=== PATIENT | female | born 1950 | race Caucasian/White ===

== ENCOUNTER 2016-03-15 19:27 | Inpatient (IN) | payer OTHER ==
[~2016-03-15] VITALS: Ht 165.1 cm; Wt 53.5 kg
[2016-03-15 20:00] VITALS: Ht 165.1 cm; Wt 53.5 kg
[2016-03-15 20:55] VITALS: BP_SYST 130; BP_SYST 132; BP_DIAS 63; BP_DIAS 64; RESP 16
[2016-03-15] MEDS ORDERED: BISACODYL 10 MG SUPP PR PRN (21:30)
[2016-03-15] MEDS ORDERED: NALOXONE (0.4 MG/ML) INJ IV ONE (21:30)
[2016-03-15] MEDS ORDERED: ACETAMINOPHEN/CODEINE 5 ML CUP PO PRN (21:30)
[2016-03-15] MEDS ORDERED: ACETAMINOPHEN 325/HYDROC 7.5 15 ML CUP PO PRN (21:30)
[2016-03-15] MEDS ORDERED: DIPHENHYDRAMINE 50 MG INJ IV PRN (21:30)
[2016-03-15] MEDS ORDERED: ACETAMINOPHEN 325 MG TAB PO PRN (21:30)
[2016-03-15] MEDS: SENNA TAB PO SCH (22:00)
[2016-03-15] MEDS ORDERED: NALOXONE (0.4 MG/ML) INJ IV PRN (22:00)
[2016-03-15 22:49] LABS: ADD UMIC YES; URINE BILIRUBIN (Dip) 1+ (NEGATIVE); URINE BLOOD (Dip) 1+ (NEGATIVE); URINE COLOR YELLOW (YELLOW); URINE GLUCOSE (Dip) NEGATIVE (NEGATIVE); URINE KETONES (Dip) 3+ (NEGATIVE); URINE LEUKOCYTE ESTERASE (Dip) 1+ (NEGATIVE); URINE NITRITE (Dip) NEGATIVE (NEGATIVE); URINE TOTAL PROTEIN (Dip) TRACE (NEGATIVE); URINE UROBILINOGEN (Dip) 0.2 E.U./dL (0.1-1.0)
[2016-03-15 23:05] LABS: ICTOTEST NEGATIVE (NEGATIVE)
[2016-03-15 23:06] LABS: BACTERIA,URINE MODERATE; SQUAMOUS EPITHELIAL CELL,UR MODERATE
[2016-03-15 23:07] LABS: MUCUS,URINE MODERATE
[2016-03-16 08:08] LABS: BASOPHIL # 0.1 10^3/ul (0.0-0.1); EOSINOPHILS # 0.3 10^3/ul (0.0-0.5); HEMATOCRIT 32.8 % (37.0-47.0); HEMOGLOBIN 11.2 g/dl (12.0-16.0); LYMPHOCYTES # 1.4 10^3/ul (0.8-2.9); LYMPHOCYTES % 22.1 % (15.0-51.0); MEAN CORPUSCULAR HGB CONC 34.1 g/dl (32.0-37.0); MEAN PLATELET VOLUME 7.9 fl (7.4-10.4); MONOCYTE # 0.5 10^3/ul (0.3-0.9); MONOCYTES % 7.5 % (0.0-11.0); NEUTROPHIL # 4.3 10^3/ul (1.6-7.5); NEUTROPHILS % 65.4 % (39.0-77.0); PLATELET COUNT 287 10^3/UL (140-440); RED BLOOD COUNT 3.86 10^6/ul (4.20-5.40); RED CELL DISTRIBUTION WIDTH 12.9 % (11.5-14.5); UNCORRECTED WBC 6.5 10^3/ul (4.8-10.8); WHITE BLOOD COUNT 6.5 10^3/ul (4.8-10.8)
[2016-03-16 08:15] LABS: ALBUMIN 3.6 g/dl (3.3-4.9); CONDITION 1; POTASSIUM 3.2 mmol/L (3.5-5.1)
[2016-03-16 08:17] LABS: CREATININE 0.62 mg/dl (0.44-1.00)
[2016-03-16 08:18] LABS: ALBUMIN/GLOBULIN RATIO 0.92; BILIRUBIN,INDIRECT 0.8 mg/dl (0-1.1); BILIRUBIN,TOTAL 0.8 mg/dl (0.2-1.3); TOTAL PROTEIN 7.5 g/dl (6.1-8.1)
[2016-03-16 08:19] LABS: CALCIUM 8.6 mg/dl (8.4-10.2)
[2016-03-16] MEDS ORDERED: POTASSIUM CHLORIDE (SR) 20 MEQ TAB PO STA (10:41)
[2016-03-16] MEDS ORDERED: MAGNESIUM HYDROXIDE 30ML CUP PO PRN (11:00)
--- NOTE | 2016-03-16 11:47 | CONS ---
DATE OF ADMISSION: 03/15/2016 DATE OF CONSULTATION: 03/16/2016 REHABILITATION POST ADMISSION PHYSICIAN EVALUATION REHABILITATION IMPAIRMENT CATEGORY: Other orthopedic injury with patient status post right total kn ee arthroplasty. ACTIVE COMORBIDITIES: 1. Acute pain syndrome. 2. Dysphagia. 3. History of shoulder surgery. 4. History of gastric lap band. 5. Impairments in self-care and mobility. HISTORY OF PRESENT ILLNESS: The patient is a very pleasant 65-year-old female with a history of ga stric lap band who sustained a work related right knee injury in 2012. The patient has noted signif icant pain and discomfort and impairments in self-care and mobility despite conservative measures. The patient underwent a right total knee arthroplasty on 03/12/2016. Her postoperative course has b een notable for significant pain, and impairments in self-care and mobility as compared to baseline. The patient has been cleared to transfer to the rehabilitation unit for comprehensive interdiscipl inary rehab care. FUNCTIONAL HISTORY: Prior to recent events, she was independent in self-care tasks and mobility. C urrently, she requires minimal assist for self-care and mobility tasks. I have reviewed the preadmission screen and the patient's current functional status is consistent wi th the preadmission screen. SOCIAL HISTORY: The patient lives at home with her and hopes to return there upon discharge . PAST MEDICAL HISTORY: 1. History of gastric lap band surgery. 2. History of shoulder surgery. CURRENT MEDICATIONS: 1. Hydrocodone p.r.n. 2. Colace 250 b.i.d. p.r.n. 3. Morphine sulfate IV. 4. Zofran p.r.n. 5. Xarelto 10 mg p.o. daily. 6. Ambien p.r.n. ALLERGIES: BACITRACIN. PHYSICAL EXAMINATION: VITAL SIGNS: The patient is currently afebrile with stable vital signs. HEENT: The extraocular motions are intact. Oropharynx clear. NECK: Supple. LUNGS: Clear anteriorly. CARDIAC: S1, S2. ABDOMEN: Soft, nontender, positive bowel sounds. NEUROLOGIC: She is awake, alert, and oriented x3. She can follow simple 1-step commands. Cranial nerves are grossly intact. She has good strength in bilateral upper extremity and the left lower ex tremity. Dorsiflexion and plantarflexion intact on the right. PLAN: The patient has been admitted for comprehensive interdisciplinary acute rehab and is anticipa jadiel to tolerate 3 hours of daily therapy in divided doses for at least 5/7 days a week. Treatment p genesis will include: 1. Physical therapy to focus on bed mobility, transfers, and household ambulation with the goal of having the patient reach a standby assist level. 2. Occupational therapy to focus on hygiene, grooming, dressing, bathing, and toileting activities with the goal of having the patient reach a standby assist level. 3. Rehabilitation nursing for carryover of therapeutic interventions with the goal of continent of bowel and bladder, and the goal of pain adequately managed on oral medications. REHABILITATION BARRIER: Pain. INTERVENTION FOR BARRIER: Comprehensive interdisciplinary approach. ESTIMATED LENGTH OF STAY: 10 days. DISPOSITION GOAL: Home. I acknowledge that I have performed a full physical examination on this patient within 24 hours of a dmission to the rehabilitation unit and believe the patient is a good candidate for comprehensive in terdisciplinary rehab care and is anticipated to make reasonable goals in a reasonable period of savannah e as outlined above. Dictated By: RUDDY ATKINS/ROGELIO Conf#: [id number] DID#: [id number]
--- NOTE | 2016-03-16 15:32 | HP ---
DATE OF ADMISSION: 03/15/2016 REASON FOR ADMISSION: The patient status post right total knee arthroplasty on 03/12/2016, presents for rehabilitation. HISTORY OF PRESENT ILLNESS: The patient is a 65-year-old female with a history of right k nee osteoarthritis, work-related injury to the knee, obese state status post laparoscopic band surge ry in 2007, hypothyroidism. Currently off medications, status post multiple orthopedic surgeries i n the past including left rotator cuff surgery, meniscal tear in the right knee who had difficulty w ith ambulation because of ongoing pain. It was decided for the patient to undergo total knee arthro plasty. The patient underwent total right knee arthroplasty on 03/12/2016. Overall, tolerated the procedure well. Post surgery she has been having trouble swallowing food. She has been experiencin g episodes of nausea and some vomiting. It was decided to transfer her to the acute rehab at [facility] for rehabilitation. The patient denies dysuria, denies any headaches or blurry vision . Denies any chest pain or shortness of breath. She does report difficulty tolerating food since t he surgery. Has been swallowing pills at times. The patient is admitted for further care. PAST MEDICAL HISTORY: Includes osteoarthritis, work-related joint injury, previously morbidly obese , status post lap band surgery. PAST SURGICAL HISTORY: x3, rotator cuff surgery on the left, gastric lap band in 2007, me niscal tear in the right knee surgery, cataract surgery. ALLERGIES: BACITRACIN. PREVIOUS MEDICATIONS: Synthroid, currently off. MEDICATIONS UPON ADMISSION: Include: 1. Xarelto 10 mg with dinner. 2. Milk of magnesia p.r.n. 3. Senna 1 tab at bedtime. 4. Tylenol p.r.n. 5. Ambien p.r.n. 6. Tylenol with codeine liquid q.4h. p.r.n. 7. Bisacodyl p.r.n. 8. Zofran p.r.n. 9. Benadryl p.r.n. SOCIAL HISTORY: The patient denies tobacco, alcohol, or IV drug use. The patient is +3. 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 FAMILY HISTORY: Mother recently. She was 92 years old. Father has multiple medical problems including CHF, COPD, and prostate cancer. The patient's last colonoscopy was in 2007 which was norm al. The patient is up to date with mammogram. PRIMARY MEDICAL DOCTOR: Jalen Houser REVIEW OF SYSTEMS: Per HPI. The patient did suffer work-related injury in 2011 after she fell. Si nce then she has been experiencing the right knee problems, now underwent surgery. The patient is a dmitted for further care. Again, patient denies headaches, blurry vision, chest pain, shortness of breath. PHYSICAL EXAMINATION: VITAL SIGNS: Blood pressure is 130/63, pulse 73, respirations 16, temperature 99.1, saturation 96% on room air. GENERAL: No acute distress, thin-looking, patient is pale. HEENT: No JVD. CARDIOVASCULAR: S1, S2, regular rate and rhythm. LUNGS: Clear. ABDOMEN: In the right upper quadrant you can feel the lap band, otherwise no significant pain. EXTREMITIES: No clubbing, cyanosis, or edema. Right lower extremity in a brace. NEUROLOGIC: The patient is moving all extremities. LABORATORIES: White count 6.5, hemoglobin 11.2, hematocrit 33, platelet count 287, neutrophils 65%, lymphocytes 22%. Chemistry: Sodium is 141, potassium 3.2, low, chloride 95, bicarbonate 33, BUN i s 14, creatinine 0.62, glucose of 89. AST 19, ALT 20, alkaline phosphatase 50, total protein 7.5, a lbumin is 3.6. UA shows specific gravity greater than 1.030, ketones +3, bilirubin +1, leukocyte es terase +1, and WBCs 20 to 50, moderate epithelial cells. Urine culture so far negative. MRSA of th e nose is pending. ASSESSMENT AND PLAN: This is a 65-year-old female with status post work-related injury, n ow status post right knee arthroplasty. 1. Right knee total arthroplasty. The patient to receive physical therapy, special instrument for right knee, rehab, pain control, physical therapy, occupational therapy. Goal is to help with activ ities of daily living so she can go home. 2. Some dysphagia and nausea. We will place the patient on Reglan around the clock before meals. Will more stool softeners as the patient may be constipated. Placed her on proton pump inhibitor. If symptoms persist, we will consult GI and possible general surgeon as the patient does have a lap band. In the meantime, we will try to crush all medication. We will give it her in liquid form. 3. History of hypothyroidism. Follow up TSH levels. Currently, off medications. 4. The patient is on Xarelto 10 mg daily for DVT prophylaxis. 5. Anemia, stable, status post surgery. 6. Malnutrition with a BMI of 19.6. Continue Boost and monitor patient's p.o. intake. 7. Hypokalemia, potassium supplements were given. 8. Positive urinalysis, clinically is asymptomatic. If I see that she has symptoms, may consider s tarting her on empiric treatment as the patient's vomiting may be related to UTI. Again, will follo w also cultures and sensitivities. We will follow the patient closely. Dictated By: TRACE SELLERS/ROGELIO Conf#: [id number] DID#: [id number]
[2016-03-16] MEDS: RIVAROXABAN 10 MG TABLET PO SCH (17:37)
[2016-03-16] MEDS: METOCLOPRAMIDE 10 MG TAB PO SCH (17:37)
[2016-03-16] MEDS: CIPROFLOXACIN 500 MG TAB PO SCH (17:38)
[2016-03-16 20:00] VITALS: BP 111/56; RESP 18
[2016-03-16] MEDS: ZOLPIDEM 5 MG TAB PO PRN (20:51)
[2016-03-16] MEDS: SENNA TAB PO SCH (21:00)
[2016-03-17] MEDS ORDERED: PANTOPRAZOLE (EC) 40 MG TAB PO SCH (06:00)
[2016-03-17] MEDS: CIPROFLOXACIN 500 MG TAB PO SCH (06:45)
[2016-03-17 07:30] VITALS: BP 116/56; RESP 18
[2016-03-17] MEDS: METOCLOPRAMIDE 10 MG TAB PO SCH ×2 (09:23→11:24)
[2016-03-17] MEDS: POLYETHYLENE GLYCOL 17 GM PACKET PO SCH (09:23)
[2016-03-17] MEDS: SCOPOLAMINE 1.5 MG PATCH TRANSDERM SCH (09:24)
[2016-03-17] MEDS: morphine LIQ (10 MG/5 ML) CUP PO PRN (13:12)
--- NOTE | 2016-03-17 14:32 | PN ---
Date/Time of Note Date/Time of Note DATE: 03/17/16 TIME: 14:24 Assessment/Plan VTE Prophylaxis VTE Prophylaxis Intervention: other (xarelto) Lines/Catheters Urinary Cath still in place: No Assessment/Plan Assessment/Plan 1. Status post Right total knee arthroplasty with history of right knee OA and prior work related injury. With impaired mobility/gait/ADLs. Continue PT/OT, min assist for gait 60ft with walker. Moderate assistance for lower body dressing. Continue surgical site care. Continue pain control for acute post op pain, patient hesitant to take pain medications due to nausea. 2. Dysphagia, with persistent nausea and vomiting, with history of lap band surgery. Has been evaluated by ST, report oropharyngeal stage of swallow appearing to be relatively functional; recommend GI consult to evaluate esophageal stage of swallow. Discussed case with internal medicine today, plan for GI consult for further evaluation. Continue antiemetics and PPI. Continue stool softeners to avoid constipation. 3. Anemia. Continue to monitor hemoglobin/hematocrit. 4. Hypokalemia. S/p supplementation. Recheck BMP tomorrow. 5. Positive urinalysis. On antibiotics per internal medicine, urine culture without growth to date. Subjective 24 Hr Interval Summary Free Text/Dictation Rehab progress note Subjective: Reports moderate pain in right knee. Still with ongoing nausea and vomiting after food intake. No abdominal pain. Reports moving bowels. ROS: Denies headache, no chest pain, no palpitations, no shortness of breath, no chills. Exam/Review of Systems Vital Signs Vitals Vital Signs Date Time Temp Pulse Resp B/P Pulse Ox O2 Delivery O2 Flow Rate FiO2 03/17/16 07:30 97.7 57 18 116/56 99 Intake and Output 03/16/16 03/16/16 03/17/16 15:00 23:00 07:00 Intake Total 480 ml 840 ml Output Total 20 ml Balance 480 ml 820 ml Exam General: Awake, alert, no acute distress CV: Regular rate, s1s2 Lungs clear to auscultation, no wheezing Abdomen soft, nontender, bowel sounds present Extremities: Right knee dressing c/d/i. No cyanosis Neuro: Follows simple commands. R DF/PF intact. Results Result Diagram: 03/16/1662103/16/16621 Medications Medications Current Medications Acetaminophen (Tylenol Tab) 650 mg Q4H PRN PO PAIN AND OR ELEVATED TEMP; Start 03/15/16 at 21:30 Senna (Senokot) 1 tab HS PO ; Start 03/15/16 at 22:00 Acetaminophen/ Codeine Phosphate (Tylenol/Codeine Liquid) 12.5 ml Q4H PRN PO PAIN Last administered on 03/16/16 12:41; Admin Dose 12.5 ML; Start 03/15/16 at 21:30 Acetaminophen/ Hydrocodone Bitart (Lortab Liq) 15 ml Q3 PRN PO PAIN Last administered on 03/16/16 08:45; Admin Dose 15 ML; Start 03/15/16 at 21:30 Bisacodyl (Dulcolax Supp) 10 mg HS PRN [place] CONSTIPATION; Start 03/15/16 at 21:30 Ondansetron HCl (Zofran Inj) 4 mg Q4H PRN IV NAUSEA AND/OR VOMITING; Start at 21:30 Diphenhydramine HCl (Benadryl) 12.5 mg Q6H PRN IV ITCHING; Start 03/15/16 at 21 :30 Naloxone HCl (Narcan) 0.4 mg PRN PRN IV SEDATION; Start 03/15/16 at 22:00 Magnesium Hydroxide (Milk Of Mag) 30 ml DAILY PRN PO CONSTIPATION Last administered on 03/16/16 15:39; Admin Dose 30 ML; Start 03/16/16 at 11:00 Pantoprazole (Protonix Tab) 40 mg DAILY@06 PO Last administered on 03/17/16 06 :45; Admin Dose 40 MG; Start 03/17/16 at 06:00 Polyethylene Glycol (Miralax) 17 gm DAILY PO Last administered on 03/17/16 09: 23; Admin Dose 17 GM; Start 03/17/16 at 09:00 Morphine Sulfate (morphine) 10 mg Q4H PRN PO PAIN Last administered on 13:12; Admin Dose 10 MG; Start 03/16/16 at 20:30 Scopolamine 1 patch 1 patch Q72H TRANSDERM Last administered on 03/17/16 09:24 ; Admin Dose 1 PATCH; Start 03/17/16 at 09:00 Dextrose/Sodium Chloride 1,000 ml @ 75 mls/hr [id number] IV ; Start 03/17/16 at 13 :30 Ceftriaxone Sodium (Rocephin) 50 ml @ 100 mls/hr Q24H IVPB ; Start 03/17/16 at 14:30 CELSA WARREN Mar 17, 2016 14:32
--- NOTE | 2016-03-17 15:52 | CONS ---
Date/Time of Note Date/Time of Note DATE: 03/17/16 TIME: 15:34 Assessment/Plan Assessment/Plan Chief Complaint/Hosp Course Impression: 1. dysphagia: ddx include narrowing from lap band, esophagitis, gastritis, constipation, thyroid disorder, others... 2. constipation: may contribute to pt's dysphagia 3. anemia: r/o gib 4. Right knee total arthroplasty. 5. History of hypothyroidism. Recommendations: 1. check TSH 2. increase PPI to bid dosing 3. dc reglan and replace with qAC zofran odt 4. barium swallow esophagram 5. EGD to evaluate dysphagia if barium swallow unrevealing and symptoms not better wtih PPI and zofran. Problems: Consultation Date/Type/Reason Admit Date/Time Mar 15, 2016 at 19:27 Type of Consultation: GI Reason for Consultation difficulty swallowing Hx of Present Illness 65-year-old female with a history of right knee osteoarthritis, work- related injury to the knee, status post multiple orthopedic surgeries in the past including left rotator cuff surgery, meniscal tear in the right knee who had difficulty with ambulation because of ongoing pain. She is s/p right total knee arthroplasty on 03-12-16 and admitted for rehabilitation. Post surgery she has been having trouble swallowing food. She has been experiencing episodes of nausea and some vomiting. She says that she was never nauseous before and in fact ate a big steak and tolerated it prior to coming to the hospital. She did have h/o lap band surgery in 2007 for obesity but denied any issues with the lap band causing current symptoms of dysphagia. The patient denies dysuria, denies any headaches or blurry vision. Denies any chest pain or shortness of breath. All point ROS is administered, pertinent positives and negatives in HPI otherwise negative. Past Medical History Medical History: other (osteoarthritis, work related joint injury, previously obese prior to lap band surgery) Past Surgical History x 3, rotator cuff surgery left, right knee meniscal tear, cataract, lap band in 2007 Family History Significant Family History: heart disease, COPD, other (prostate cancer in father) Social History Alcohol Use: none Smoking Status: Never smoker Drug Use: none Exam/Review of Systems Vital Signs Vitals Vital Signs Date Time Temp Pulse Resp B/P Pulse Ox O2 Delivery O2 Flow Rate FiO2 03/17/16 07:30 97.7 57 18 116/56 99 Intake and Output 03/16/16 03/16/16 03/17/16 15:00 23:00 07:00 Intake Total 480 ml 840 ml Output Total 20 ml Balance 480 ml 820 ml Exam Constitutional: alert, oriented, well developed Psych: nl mood/affect, no complaints Head: atraumatic, normocephalic Eyes: EOMI, nl conjunctiva, nl lids, nl sclera ENMT: mucosa pink and moist, nl external ears & nose, nl lips & teeth, nl nasal mucosa & septum Neck: non-tender, supple Respiratory: clear to auscultation, normal air movement Cardiovascular: edema, nl pulses, regular rate and rhythm Gastrointestinal: bowel sounds, nl liver, spleen, non-tender, soft Extremities: normal pulses, other (right lower extremity in brace) Neurological: nl mental status, nl speech, nl strength Results Result Diagram: 03/16/1662103/16/16621 Medications Medications Current Medications Acetaminophen (Tylenol Tab) 650 mg Q4H PRN PO PAIN AND OR ELEVATED TEMP; Start 03/15/16 at 21:30 Senna (Senokot) 1 tab HS PO ; Start 03/15/16 at 22:00 Acetaminophen/ Codeine Phosphate (Tylenol/Codeine Liquid) 12.5 ml Q4H PRN PO PAIN Last administered on 03/16/16 12:41; Admin Dose 12.5 ML; Start 03/15/16 at 21:30 Acetaminophen/ Hydrocodone Bitart (Lortab Liq) 15 ml Q3 PRN PO PAIN Last administered on 03/16/16 08:45; Admin Dose 15 ML; Start 03/15/16 at 21:30 Bisacodyl (Dulcolax Supp) 10 mg HS PRN [place] CONSTIPATION; Start 03/15/16 at 21:30 Ondansetron HCl (Zofran Inj) 4 mg Q4H PRN IV NAUSEA AND/OR VOMITING; Start at 21:30 Diphenhydramine HCl (Benadryl) 12.5 mg Q6H PRN IV ITCHING; Start 03/15/16 at 21 :30 Naloxone HCl (Narcan) 0.4 mg PRN PRN IV SEDATION; Start 03/15/16 at 22:00 Magnesium Hydroxide (Milk Of Mag) 30 ml DAILY PRN PO CONSTIPATION Last administered on 03/16/16 15:39; Admin Dose 30 ML; Start 03/16/16 at 11:00 Pantoprazole (Protonix Tab) 40 mg DAILY@06 PO Last administered on 03/17/16 06 :45; Admin Dose 40 MG; Start 03/17/16 at 06:00 Polyethylene Glycol (Miralax) 17 gm DAILY PO Last administered on 03/17/16 09: 23; Admin Dose 17 GM; Start 03/17/16 at 09:00 Morphine Sulfate (morphine) 10 mg Q4H PRN PO PAIN Last administered on 13:12; Admin Dose 10 MG; Start 03/16/16 at 20:30 Scopolamine 1 patch 1 patch Q72H TRANSDERM Last administered on 03/17/16 09:24 ; Admin Dose 1 PATCH; Start 03/17/16 at 09:00 Dextrose/Sodium Chloride 1,000 ml @ 75 mls/hr [id number] IV ; Start 03/17/16 at 13 :30 Ceftriaxone Sodium (Rocephin) 50 ml @ 100 mls/hr Q24H IVPB ; Start 03/17/16 at 14:30 SHAGGY SAMUELS MD Mar 17, 2016 15:45
[2016-03-17] MEDS: DEXTROSE 5%-0.45% NACL 1,000 ML IV SCH (16:26)
[2016-03-17] MEDS: CEFTRIAXONE 1 GM/50 ML (PMX) 50 ML IVPB SCH (16:26)
[2016-03-17] MEDS ORDERED: METOCLOPRAMIDE 10 MG TAB PO SCH (17:35)
[2016-03-17] MEDS: RIVAROXABAN 10 MG TABLET PO SCH (18:56)
[2016-03-17] MEDS: PANTOPRAZOLE 40 MG INJ IV SCH (18:57)
[2016-03-17] MEDS: ONDANSETRON (ODT) 4 MG TAB ODT SCH (18:57)
[2016-03-17 19:30] VITALS: BP 119/74; RESP 17
--- NOTE | 2016-03-17 20:11 | RADRPT ---
PROCEDURE: Upper GI series with small bowel follow through CLINICAL INDICATION: Solid difficulty, regurgitation. TECHNIQUE: Upper GI series was performed with approximately 1 cup of barium contrast with overhead radiographs obtained during the procedure. Fluoroscopic guidance was utilized during the examinati on. COMPARISON: None available. FINDINGS: Upper GI: The swallowing mechanism is normal. The esophagus is normal in course, caliber, and morphology with normal primary peristaltic stripping waves. No mucosal changes in the esophagus are identified. There is no evidence for hiatal hernia. Lap band is noted. Position is satisfactory. There is minimal contrast flow through the lap band. There is persistent contrast in the esophagus for up to 10 minutes. There is minimal contrast in the stomach. Small bowel follow-through could not be performed as no contrast reached the duodenum. There is significant and persistent reflux without significant contraction of the lower esophageal s phincter. IMPRESSION: 1. Lap-band with satisfactory position. 2. There is minimal contrast flow through the lap band. This may be due to adjustment of the lap b and or due to underlying inflammation/gastritis causing stenosis through the lap band. GI consultati on is suggested. 3. Persistent retained barium contrast in the esophagus for longer than 10 minutes. The barium con trast was not cleared at the end of the exam. 4. Incomplete upper GI and incomplete small-bowel follow-through due to obstruction at the lap band . The study may be repeated after clearance of the obstruction. RPTAT: HLDM .Karlos Viveros MD, Date Time Electronically viewed and signed by .Karlos Viveros MD, on 03/17/2016 20:11 .M/
[2016-03-17] MEDS: SENNA TAB PO SCH (20:27)
[2016-03-17] MEDS: ZOLPIDEM 5 MG TAB PO PRN (20:28)
--- NOTE | 2016-03-17 20:40 | PN ---
DATE: 03/17/2016 SUBJECTIVE: Patient seen. Unfortunately, the patient still has difficulty tolerating all meals. S he said everything that goes in, comes back out. She prefers her diet to be in liquid form for now. Overall, participating with physical therapy and occupational therapy. The patient also complaini ng of dizziness when getting out of bed. PHYSICAL EXAMINATION: VITAL SIGNS: Temperature 97.7, pulse 57, respirations 18, blood pressure 116/56, saturation 99% on room air. GENERAL: The patient is in no acute distress. Patient is pale, thin looking. CARDIOVASCULAR: S1, S2, regular rate and rhythm. LUNGS: Clear. ABDOMEN: Soft, thin. The Lap band is palpated in the right upper quadrant. EXTREMITIES: No clubbing, cyanosis, or edema. Right lower extremity is in a special bandage. LABORATORY DATA: Done on admission shows a white count of 6.5, hemoglobin 11.2, hematocrit 33, plat elet count 287,000, with normal differential. Chemistry: Sodium 141, potassium 3.2, otherwise CMP is normal. UA was positive on admission with specific gravity greater than 1.030 suggestive of dehy dration. Negative leukocyte esterase at +1, WBC 25-50. I did start on ciprofloxacin. Urine culture remains negative. MRSA of the nares is negative. MEDICATIONS: Current meds reviewed include: 1. MiraLAX 17 grams daily. 2. Scopolamine patch q.72h. 3. Protonix 40 mg daily. 4. Morphine 10 mg orally q.4h. p.r.n. 5. Cipro 500 b.i.d. 6. Xarelto 10 mg with dinner. 7. Reglan 10 mg with meals orally. 8. Milk of magnesia p.r.n. 9. Senna 1 tab at bedtime. 10. Narcan p.r.n. 11. Tylenol p.r.n. 12. Ambien p.r.n. 13. Lortab p.r.n. 14. Dulcolax p.r.n. 15. Zofran p.r.n. ASSESSMENT AND PLAN: This is a 65-year-old female with history of Lap band surgery in the past, hypothyroidism, anemia postop, who presents status post right knee arthroplasty secondary to work-related injury. 1. Right hip total arthroplasty. Continue physical therapy, occupational therapy, pain control. H elp with activities of daily living, with the goal for her to go home. 2. Cardiovascular. The patient is on Xarelto for DVT prophylaxis. 3. Gastrointestinal. The patient with persistent dysphagia and nausea. Will change oral Reglan t o IV Reglan. We will hydrate patient gently, and will consult GI. Continue stool softeners and pro ton pump inhibitor. The patient also is on scopolamine. Will continue to monitor her symptoms clos merline. Change her diet to full liquid diet for now. 4. Hypothyroidism. Currently off Synthroid. Followup TSH level in the a.m. 5. Anemia, mild postoperatively. 6. Hypokalemia. Follow up potassium levels. 7. Positive urinalysis. Switch Cipro to ceftriaxone. 8. We will continue to follow the patient closely and may consider surgical evaluation of patient's Lap band. Case discussed with rehab physician. We will follow. Dictated By: TRACE SELLERS/ROGELIO Conf#: [id number] DID#: [id number]
[2016-03-18] MEDS: PANTOPRAZOLE 40 MG INJ IV SCH ×2 (06:14→17:34)
[2016-03-18] MEDS: DEXTROSE 5%-0.45% NACL 1,000 ML IV SCH ×2 (06:14→20:13)
[2016-03-18 07:30] VITALS: BP 109/55; RESP 18
[2016-03-18 07:45] LABS: ALBUMIN 3.3 g/dl (3.3-4.9)
[2016-03-18 07:46] LABS: POTASSIUM 3.4 mmol/L (3.5-5.1)
[2016-03-18 07:48] LABS: ALBUMIN/GLOBULIN RATIO 0.91; BILIRUBIN,INDIRECT 0.6 mg/dl (0-1.1); BILIRUBIN,TOTAL 0.6 mg/dl (0.2-1.3); CREATININE 0.61 mg/dl (0.44-1.00); TOTAL PROTEIN 6.9 g/dl (6.1-8.1)
[2016-03-18 07:50] LABS: PHOSPHORUS 4.6 mg/dl (2.5-4.9)
[2016-03-18 08:02] LABS: BASOPHILS % 0.7 % (0.0-2.0); EOSINOPHILS # 0.2 10^3/ul (0.0-0.5); EOSINOPHILS % 5.1 % (0.0-7.0); HEMATOCRIT 28.3 % (37.0-47.0); HEMOGLOBIN 9.9 g/dl (12.0-16.0); LYMPHOCYTES # 1.1 10^3/ul (0.8-2.9); LYMPHOCYTES % 23.5 % (15.0-51.0); MEAN CORPUSCULAR HEMOGLOBIN 28.8 pg (29.0-33.0); MEAN CORPUSCULAR HGB CONC 35.1 g/dl (32.0-37.0); MEAN CORPUSCULAR VOLUME 82.1 fl (82.0-101.0); MEAN PLATELET VOLUME 7.9 fl (7.4-10.4); MONOCYTE # 0.5 10^3/ul (0.3-0.9); NEUTROPHIL # 2.7 10^3/ul (1.6-7.5); NEUTROPHILS % 59.7 % (39.0-77.0); PLATELET COUNT 258 10^3/UL (140-440); RED BLOOD COUNT 3.45 10^6/ul (4.20-5.40); RED CELL DISTRIBUTION WIDTH 13.3 % (11.5-14.5); UNCORRECTED WBC 4.6 10^3/ul (4.8-10.8); WHITE BLOOD COUNT 4.6 10^3/ul (4.8-10.8)
[2016-03-18 08:19] LABS: THYROID STIMULATING HORMONE 3.56 MIU/L (0.465-4.680)
[2016-03-18 08:21] LABS: CONDITION 1
[2016-03-18] MEDS: ONDANSETRON (ODT) 4 MG TAB ODT SCH ×3 (08:21→17:34)
[2016-03-18] MEDS: POLYETHYLENE GLYCOL 17 GM PACKET PO SCH (08:21)
--- NOTE | 2016-03-18 09:20 | CONS ---
Date/Time of Note Date/Time of Note DATE: 03/18/16 TIME: 09:16 Assessment/Plan Assessment/Plan Chief Complaint/Hosp Course Impression: 1. dysphagia: likely due to narrowing from esophagitis, gastritis. Less likely narrowing due to lap band as pt previously did not experience obstructive symptoms. 2. constipation: may contribute to pt's dysphagia 3. anemia: r/o gib 4. Right knee total arthroplasty. 5. History of hypothyroidism. TSH normal now Recommendations: 1. continue soft diet and advance as tolerated by patient 2. continue PPI to bid dosing to treat the likely esophagitis and gastritis 3. continue qAC zofran odt 4. EGD to evaluate dysphagia if barium swallow unrevealing and symptoms not better wtih PPI to assess whether there is inflammation that can be treated medically or due to lap band which would then need surgical intervention. Problems: Consultation Date/Type/Reason Admit Date/Time Mar 15, 2016 at 19:27 Initial Consult Date Type of Consultation: GI 24 HR Interval Summary Free Text/Dictation tolerating soft diet, no n/v, results of upper GI d/w patient Constitutional: improved Exam/Review of Systems Vital Signs Vitals Vital Signs Date Time Temp Pulse Resp B/P Pulse Ox O2 Delivery O2 Flow Rate FiO2 03/17/16 19:30 97.3 66 17 119/74 97 Intake and Output 03/17/16 03/17/16 03/18/16 15:00 23:00 07:00 Intake Total 800 ml 565 ml 1225 ml Output Total 1000 ml Balance 800 ml 565 ml 225 ml Exam Constitutional: alert, oriented, well developed Psych: nl mood/affect, no complaints Head: atraumatic, normocephalic Eyes: EOMI, nl conjunctiva, nl lids, nl sclera ENMT: mucosa pink and moist, nl external ears & nose, nl lips & teeth, nl nasal mucosa & septum Neck: non-tender, supple Respiratory: clear to auscultation, normal air movement Cardiovascular: nl pulses, regular rate and rhythm Gastrointestinal: bowel sounds, non-tender, soft Results Result Diagram: 03/18/16 0617 03/18/16 0617 Results 24 hrs Laboratory Tests Test 03/18/16 06:17 Alanine Aminotransferase (ALT/SGPT) 22 Albumin 3.3 Albumin/Globulin Ratio 0.91 Alkaline Phosphatase 42 Anion Gap 14 Aspartate Amino Transf (AST/SGOT) 19 Basophils # 0.0 Basophils % 0.7 Blood Morphology Comment Blood Urea Nitrogen 12 Calcium Level 9.0 Carbon Dioxide Level 32 H Chloride Level 95 L Creatinine 0.61 Direct Bilirubin 0.00 Eosinophils # 0.2 Eosinophils % 5.1 Globulin 3.60 H Glucose Level 104 Hematocrit 28.3 L Hemoglobin 9.9 L Indirect Bilirubin 0.6 Lipase 56 Lymphocytes # 1.1 Lymphocytes % 23.5 Magnesium Level 2.0 Mean Corpuscular Hemoglobin 28.8 L Mean Corpuscular Hemoglobin Concent 35.1 Mean Corpuscular Volume 82.1 Mean Platelet Volume 7.9 Monocytes # 0.5 Monocytes % 11.0 Neutrophils # 2.7 Neutrophils % 59.7 Nucleated Red Blood Cells # 0.0 Nucleated Red Blood Cells % 0.0 Phosphorus Level 4.6 Platelet Count 258 Potassium Level 3.4 L Red Blood Count 3.45 L Red Cell Distribution Width 13.3 Sodium Level 138 Thyroid Stimulating Hormone (TSH) 3.560 Total Bilirubin 0.6 Total Protein 6.9 Vitamin B12 Level Pending White Blood Count 4.6 #L Medications Medications Current Medications Acetaminophen (Tylenol Tab) 650 mg Q4H PRN PO PAIN AND OR ELEVATED TEMP; Start 03/15/16 at 21:30 Acetaminophen/ Codeine Phosphate (Tylenol/Codeine Liquid) 12.5 ml Q4H PRN PO PAIN Last administered on 03/16/16 12:41; Admin Dose 12.5 ML; Start 03/15/16 at 21:30 Acetaminophen/ Hydrocodone Bitart (Lortab Liq) 15 ml Q3 PRN PO PAIN Last administered on 03/16/16 08:45; Admin Dose 15 ML; Start 03/15/16 at 21:30 Bisacodyl (Dulcolax Supp) 10 mg HS PRN [place] CONSTIPATION; Start 03/15/16 at 21:30 Ondansetron HCl (Zofran Inj) 4 mg Q4H PRN IV NAUSEA AND/OR VOMITING; Start at 21:30 Diphenhydramine HCl (Benadryl) 12.5 mg Q6H PRN IV ITCHING; Start 03/15/16 at 21 :30 Naloxone HCl (Narcan) 0.4 mg PRN PRN IV SEDATION; Start 03/15/16 at 22:00 Magnesium Hydroxide (Milk Of Mag) 30 ml DAILY PRN PO CONSTIPATION Last administered on 03/16/16 15:39; Admin Dose 30 ML; Start 03/16/16 at 11:00 Polyethylene Glycol (Miralax) 17 gm DAILY PO Last administered on 03/18/16 08: 21; Admin Dose 17 GM; Start 03/17/16 at 09:00 Morphine Sulfate (morphine) 10 mg Q4H PRN PO PAIN Last administered on 13:12; Admin Dose 10 MG; Start 03/16/16 at 20:30 Scopolamine 1 patch 1 patch Q72H TRANSDERM Last administered on 03/17/16 09:24 ; Admin Dose 1 PATCH; Start 03/17/16 at 09:00 Dextrose/Sodium Chloride 1,000 ml @ 75 mls/hr [id number] IV Last administered on 03/18/16 06:14; Admin Dose 75 MLS/HR; Start 03/17/16 at 13:30 Ceftriaxone Sodium (Rocephin) 50 ml @ 100 mls/hr Q24H IVPB Last administered on 03/17/16 16:26; Admin Dose 100 MLS/HR; Start 03/17/16 at 14:30 Pantoprazole (Protonix Iv) 40 mg BID@06,18 IV Last administered on 03/18/16 06 :14; Admin Dose 40 MG; Start 03/17/16 at 18:00 SHAGGY SAMUELS MD Mar 18, 2016 09:20
[2016-03-18] MEDS: morphine LIQ (10 MG/5 ML) CUP PO PRN (10:06)
[2016-03-18] MEDS ORDERED: POTASSIUM CHLORIDE (SR) 20 MEQ TAB PO STA (12:45)
[2016-03-18] MEDS: CEFTRIAXONE 1 GM/50 ML (PMX) 50 ML IVPB SCH (14:41)
[2016-03-18] MEDS: morphine 2 MG INJ IV PRN ×2 (14:49→20:14)
[2016-03-18] MEDS: RIVAROXABAN 10 MG TABLET PO SCH (17:34)
--- NOTE | 2016-03-18 18:35 | PN ---
DATE: 03/18/2016 SUBJECTIVE: Appreciate Dr. Bebo Vanessa, GI input. The patient is status post upper gastrointestinal series. The patient is currently being hydrated with IV fluids and overall feeling better. She sa ys she was able to tolerate some food today, so overall she is feeling stronger. PHYSICAL EXAMINATION: VITAL SIGNS: Temperature 98.7, pulse 61, respiration 18, blood pressure 109/55, saturation 98%. GENERAL: In no acute distress. HEENT: Normocephalic, atraumatic. The patient is pale. CARDIOVASCULAR: S1 and S2, regular rate. LUNGS: Clear. ABDOMEN: Soft, thin. EXTREMITIES: No clubbing, cyanosis, or edema. LABORATORY DATA: White count is 4.6. Hemoglobin dropped and she is hemodiluted. She is on IV flui ds. Hemoglobin 9.9, hematocrit 28, platelet count 258, neutrophils 60%, lymphocytes 24%. Chemistry : Sodium is 138, potassium is low at 3.4, chloride 94, bicarbonate 32, BUN is 12, creatinine 0.61, glucose of 104. B12 of 850, magnesium 2.0, AST 19, ALT 22. TSH is 3.56. UA shows 2 leukocyte darren rase +1, WBC 25 to 50, and urine culture did show gram-positive organisms, mixed, likely a contamina tion 20,000 to 30,000. MEDICATIONS: Include: 1. Protonix 40 IV b.i.d. 2. Zofran 4 mg q.a.c. meals. 3. Rocephin 1 gram q.24h. 4. D5 half normal at 75 mL an hour. 5. MiraLax 17 grams daily. 6. Scopolamine patch q.72h. 7. Morphine 10 mg q.4h. p.r.n. 8. Xarelto 10 mg with dinner. 9. Milk of magnesia p.r.n. 10. Narcan p.r.n. 11. Tylenol p.r.n. 12. Ambien p.r.n. 13. Lortab p.r.n. 14. Dulcolax p.r.n. 15. Zofran and Benadryl p.r.n. Upper GI series also showed the following: Lap band was satisfactory position. There is minimal co ntrast flow through the lap band. This may be due to adjustment of the lap band or due to underlyin g inflammatory gastritis causing stenosis through the lap band. GI consultation is suggested. Ther e is persistently retained barium contrast in the esophagus for longer than 10 minutes. The barium contrast was not clear at the end of the exam. Incomplete upper GI and incomplete small bowel follo w through due to obstruction of the lap band. The study may be repeated after the clearance of the obstruction. ASSESSMENT AND PLAN: This is a 65-year-old female with history of laparoscopic band surge ry in the past, hypothyroidism, anemia who presented status post right knee arthroplasty secondary t o work related injury. 1. Right hip total arthroplasty. Continue physical therapy, pain control, deep vein thrombosis pro phylaxis, and gastrointestinal prophylaxis. Continue to participate. We will follow. 2. Cardiovascular. The patient is on Xarelto for deep vein thrombosis prophylaxis. Vitals are sta ble. 3. Anemia, hemodiluted. Observe. Currently no need for blood products. 4. Questionable lap band obstruction on superimposed possible gastritis. The patient is on Protoni x. The patient clinically improved. Continue IV fluids for now. Advance diet slowly and monitor. If there are any persistent symptoms, definitely will need surgical evaluation of the lap band, so will consult surgical specialty most likely. 5. Hypothyroidism. Continue Synthroid. 6. Anemia. Observe. 7. Hypokalemia. Potassium supplements will be provided. 8. Positive UA. She had some symptoms, which the patient is already feeling better, so will contin ue Rocephin for a few more days. 9. Continue stool softeners. Case discussed with family as well at bedside. We will follow. Dictated By: TRACE SELLERS/ROGELIO Conf#: [id number] DID#: [id number] CC: RUDDY WYNN MD;*EndCC*
[2016-03-18 20:00] VITALS: BP 119/64; RESP 19
[2016-03-18] MEDS: ZOLPIDEM 5 MG TAB PO PRN (20:13)
[2016-03-19] MEDS: PANTOPRAZOLE 40 MG INJ IV SCH ×2 (05:47→17:53)
[2016-03-19 07:30] VITALS: BP 121/55; RESP 18
[2016-03-19] MEDS: morphine 2 MG INJ IV PRN ×2 (08:54→13:54)
[2016-03-19] MEDS: POLYETHYLENE GLYCOL 17 GM PACKET PO SCH (08:54)
[2016-03-19] MEDS: ONDANSETRON (ODT) 4 MG TAB ODT SCH ×3 (08:55→16:55)
[2016-03-19] MEDS: DEXTROSE 5%-0.45% NACL 1,000 ML IV SCH ×2 (12:20→16:30)
--- NOTE | 2016-03-19 12:24 | CONS ---
Date/Time of Note Date/Time of Note DATE: 03/19/16 TIME: 12:23 Consult Date/Type/Reason Admit Date/Time Mar 15, 2016 at 19:27 Initial Consult Date Type of Consultation: GI Subjective difficulty keeping food down Objective Vital Signs Date Time Temp Pulse Resp B/P Pulse Ox O2 Delivery O2 Flow Rate FiO2 03/18/16 20:00 98.4 58 19 119/64 100 Intake and Output 03/18/16 03/18/16 03/19/16 15:00 23:00 07:00 Intake Total 1290 ml 2600 ml Balance 1290 ml 2600 ml INTERDISCIPLINARY TEAM CONFERENCE BOWEL- Cont BLADDER-Cont SKIN- intact OT- DRESSING-min/mod BATHING-min/mod TOILETING-min/mod PT- BED MOBILITY-min TRANSFERS-min AMBULATION-min 60 feet A/P- Interdisciplinary team conference held today. Please see interdisciplinary sheet. Working toward d.cNey on 03/28 with post discharge follow up of physical therapy, occupational therapy. Results/Medications Result Diagram: 03/18/1661603/18/16 0617 Medications Current Medications Acetaminophen (Tylenol Tab) 650 mg Q4H PRN PO PAIN AND OR ELEVATED TEMP; Start 03/15/16 at 21:30 Acetaminophen/ Codeine Phosphate (Tylenol/Codeine Liquid) 12.5 ml Q4H PRN PO PAIN Last administered on 03/16/16 12:41; Admin Dose 12.5 ML; Start 03/15/16 at 21:30 Acetaminophen/ Hydrocodone Bitart (Lortab Liq) 15 ml Q3 PRN PO PAIN Last administered on 03/16/16 08:45; Admin Dose 15 ML; Start 03/15/16 at 21:30 Bisacodyl (Dulcolax Supp) 10 mg HS PRN [place] CONSTIPATION; Start 03/15/16 at 21:30 Ondansetron HCl (Zofran Inj) 4 mg Q4H PRN IV NAUSEA AND/OR VOMITING; Start at 21:30 Diphenhydramine HCl (Benadryl) 12.5 mg Q6H PRN IV ITCHING; Start 03/15/16 at 21 :30 Naloxone HCl (Narcan) 0.4 mg PRN PRN IV SEDATION; Start 03/15/16 at 22:00 Magnesium Hydroxide (Milk Of Mag) 30 ml DAILY PRN PO CONSTIPATION Last administered on 03/16/16 15:39; Admin Dose 30 ML; Start 03/16/16 at 11:00 Polyethylene Glycol (Miralax) 17 gm DAILY PO Last administered on 03/19/16 08: 54; Admin Dose 17 GM; Start 03/17/16 at 09:00 Morphine Sulfate (morphine) 10 mg Q4H PRN PO PAIN Last administered on 10:06; Admin Dose 10 MG; Start 03/16/16 at 20:30 Scopolamine 1 patch 1 patch Q72H TRANSDERM Last administered on 03/17/16 09:24 ; Admin Dose 1 PATCH; Start 03/17/16 at 09:00 Dextrose/Sodium Chloride 1,000 ml @ 75 mls/hr [id number] IV Last administered on 03/19/16 12:20; Admin Dose 75 MLS/HR; Start 03/17/16 at 13:30 Ceftriaxone Sodium (Rocephin) 50 ml @ 100 mls/hr Q24H IVPB Last administered on 03/18/16 14:41; Admin Dose 100 MLS/HR; Start 03/17/16 at 14:30 Pantoprazole (Protonix Iv) 40 mg BID@06,18 IV Last administered on 03/19/16 05 :47; Admin Dose 40 MG; Start 03/17/16 at 18:00 Morphine Sulfate (morphine) 2 mg Q4H PRN IV pain Last administered on 08:54; Admin Dose 2 MG; Start 03/18/16 at 13:00 RUDDY WYNN MD Mar 19, 2016 12:24 RUDDY WYNN MD Mar 19, 2016 12:24
[2016-03-19] MEDS: CEFTRIAXONE 1 GM/50 ML (PMX) 50 ML IVPB SCH (13:54)
--- NOTE | 2016-03-19 15:51 | PN ---
DATE: 03/19/2016 SUBJECTIVE: Patient seen. She still has difficulty tolerating p.o. She has intermittent episodes of vomiting. I consulted Dr. Prabhakar Payton, the surgeon regarding the patient's lap band. Patient holli valera have a lap band deflated. We will follow with recommendations. PHYSICAL EXAMINATION: VITAL SIGNS: Temperature 98.4, afebrile, pulse 58, respiration 19, blood pressure 119/64, saturatio n is 100% on room air. GENERAL: No acute distress. HEENT: Normocephalic, atraumatic. The patient is pale. Thin looking. CARDIOVASCULAR: S1 and S2, regular rate. LUNGS: Clear. ABDOMEN: Soft, nontender. Lap band is in place, palpable. EXTREMITIES: No clubbing, cyanosis, or edema. LABORATORY DATA: No new labs today, yesterday white count was 4.6, hemoglobin was 9.9. B12 850, TS H 3.56. Upper GI series as above. MEDICATIONS: Include: 1. Morphine sulfate p.r.n. 2. Protonix 40 IV b.i.d. 3. Zofran 4 mg q.a.c. meals. 4. Rocephin 1 gram q.24h. 5. D5 half normal, which we can discontinue as patient does eat some food. 6. MiraLax as directed daily. 7. Scopolamine q.72h. 8. Morphine p.r.n. 9. Zebeta 10 mg with dinner. 10. Milk of magnesia p.r.n. 11. Narcan p.r.n. 12. Tylenol p.r.n. 13. Ambien p.r.n. 14. Lortab p.r.n. 15. Zofran p.r.n. 16. Benadryl p.r.n. ASSESSMENT AND PLAN: This is an unfortunate 65-year-old female with history of laparoscopi c band surgery in the past, hypothyroidism, anemia, who presented status post right hip arthroplasty secondary to work related injury. 1. Status post right hip total arthroplasty. Continue physical therapy, pain control, deep venous thrombosis prophylaxis with Xarelto and gastrointestinal prophylaxis with Protonix. 2. Cardiovascular. Remains on Xarelto for DVT prophylaxis. Vitals are otherwise stable. 3. Anemia, observe. 4. Dysphagia, likely secondary to lap band obstruction. General surgery to follow. Continue GI sup port with Protonix, Zofran. Diet as tolerated. 5. Hypothyroidism. Continue Synthroid. 6. Hypokalemia. Monitor potassium. 7. Positive UA. Currently on Rocephin. Will continue for 1 more day. 8. Continue stool softeners. We will follow. Dictated By: TRACE SELLERS/ROGELIO Conf#: [id number] DID#: [id number]
[2016-03-19] MEDS ORDERED: D5W-0.45 NACL + KCL 10 MEQ 1,000 ML IV SCH (16:00)
[2016-03-19] MEDS ORDERED: POTASSIUM CHLORIDE 20 MEQ POWDER FOR ORAL SOLN PO ONE (16:30)
[2016-03-19] MEDS: MAGNESIUM HYDROXIDE 30ML CUP PO SCH (16:54)
[2016-03-19] MEDS: RIVAROXABAN 10 MG TABLET PO SCH (17:00)
--- NOTE | 2016-03-19 17:09 | CONS ---
Date/Time of Note Date/Time of Note DATE: 03/19/16 TIME: 17:07 Assessment/Plan Assessment/Plan Additional Assessment/Plan Impression: 1. dysphagia: likely due to narrowing from esophagitis, gastritis. Less likely narrowing due to lap band as pt previously did not experience obstructive symptoms. 2. constipation: may contribute to pt's dysphagia 3. anemia: r/o gib 4. Right knee total arthroplasty. 5. History of hypothyroidism. TSH normal now Recommendations: 1. continue soft diet and advance as tolerated by patient 2. continue PPI to bid dosing to treat the likely esophagitis and gastritis 3. continue qAC zofran odt 4.bariatric surgeon to adjust band.I will discuss with Consultation Date/Type/Reason Admit Date/Time Mar 15, 2016 at 19:27 Initial Consult Date Type of Consultation: GI 24 HR Interval Summary Free Text/Dictation nausea,heart burn,dysphagia Exam/Review of Systems Vital Signs Vitals Vital Signs Date Time Temp Pulse Resp B/P Pulse Ox O2 Delivery O2 Flow Rate FiO2 03/19/16 07:30 98.4 68 18 121/55 98 Intake and Output 03/18/16 03/18/16 03/19/16 14:59 22:59 06:59 Intake Total 1290 ml 1850 ml Balance 1290 ml 1850 ml Exam Constitutional: alert, oriented, well developed Psych: nl mood/affect, no complaints Head: atraumatic, normocephalic Eyes: EOMI, PERRL, nl conjunctiva, nl lids, nl sclera ENMT: nl external ears & nose, nl lips & teeth, nl nasal mucosa & septum Neck: non-tender, supple Respiratory: clear to auscultation, normal air movement Cardiovascular: nl pulses, regular rate and rhythm Gastrointestinal: nl liver, spleen, non-tender, soft Musculoskeletal: nl extremities to inspection, nl gait and stance Extremities: normal pulses Neurological: RUG WASHER II-XII intact, nl mental status, nl speech, nl strength Skin: nl turgor, No rash or lesions Lymph: nl lymph nodes Results Result Diagram: 03/18/1661603/18/16616 Medications Medications Current Medications Acetaminophen (Tylenol Tab) 650 mg Q4H PRN PO PAIN AND OR ELEVATED TEMP; Start 03/15/16 at 21:30 Acetaminophen/ Codeine Phosphate (Tylenol/Codeine Liquid) 12.5 ml Q4H PRN PO PAIN Last administered on 03/16/16 12:41; Admin Dose 12.5 ML; Start 03/15/16 at 21:30 Acetaminophen/ Hydrocodone Bitart (Lortab Liq) 15 ml Q3 PRN PO PAIN Last administered on 03/16/16 08:45; Admin Dose 15 ML; Start 03/15/16 at 21:30 Bisacodyl (Dulcolax Supp) 10 mg HS PRN [place] CONSTIPATION; Start 03/15/16 at 21:30 Ondansetron HCl (Zofran Inj) 4 mg Q4H PRN IV NAUSEA AND/OR VOMITING; Start at 21:30 Diphenhydramine HCl (Benadryl) 12.5 mg Q6H PRN IV ITCHING; Start 03/15/16 at 21 :30 Naloxone HCl (Narcan) 0.4 mg PRN PRN IV SEDATION; Start 03/15/16 at 22:00 Polyethylene Glycol (Miralax) 17 gm DAILY PO Last administered on 03/19/16 08: 54; Admin Dose 17 GM; Start 03/17/16 at 09:00 Morphine Sulfate (morphine) 10 mg Q4H PRN PO PAIN Last administered on 10:06; Admin Dose 10 MG; Start 03/16/16 at 20:30 Scopolamine 1 patch 1 patch Q72H TRANSDERM Last administered on 03/17/16 09:24 ; Admin Dose 1 PATCH; Start 03/17/16 at 09:00 Ceftriaxone Sodium (Rocephin) 50 ml @ 100 mls/hr Q24H IVPB Last administered on 03/19/16 13:54; Admin Dose 100 MLS/HR; Start 03/17/16 at 14:30 Pantoprazole (Protonix Iv) 40 mg BID@06,18 IV Last administered on 03/19/16 05 :47; Admin Dose 40 MG; Start 03/17/16 at 18:00 Morphine Sulfate (morphine) 2 mg Q4H PRN IV pain Last administered on 13:54; Admin Dose 2 MG; Start 03/18/16 at 13:00 Magnesium Hydroxide 30 ml 30 ml DAILY PO Last administered on 03/19/16 16:54; Admin Dose 30 ML; Start 03/19/16 at 15:00 Dextrose/Sodium Chloride (D5-1/2ns) 1,000 ml @ 70 mls/hr [id number] IV ; Start at 16:30 GLADIS PRICE MD Mar 19, 2016 17:09
[2016-03-19 20:00] VITALS: BP 120/58; RESP 18
[2016-03-19] MEDS: ZOLPIDEM 5 MG TAB PO PRN (20:54)
--- NOTE | 2016-03-19 23:58 | CONS ---
Date/Time of Note Date/Time of Note DATE: 03/19/16 TIME: 23:35 Assessment/Plan Assessment/Plan Chief Complaint/Hosp Course 1. Dysphagia, nausea, and vomiting 2nd tight lap band. Patient wants the band emptied fully. -will obtain supplies and consent for emptying the band 2. Anemia -monitor 3. Right knee injury and arthritis s/p arthroplasty -rehab 4. Dilated esophagus 2nd above -as above 5. Hypokalemia -replete Thank you very much for consulting me in this patient's care, Problems: Consultation Date/Type/Reason Admit Date/Time Mar 15, 2016 at 19:27 Date of Consultation: Mar 19, 2016 Type of Consultation: Gen Surgical Reason for Consultation Nausea and vomiting Tight lap band Referring Provider: TRACE BATES MD Hx of Present Illness Radhika Mills is a 65yo female with multiple comorbidities who has undergone right total knee arthroplasty 2nd arthritis and work injury. She is currently at [facility] rehab. Since admission, patient has been having difficulty swallowing and tolerating diet and pills. Denies f/c. Denies white/dizzy/visual or neuro changes. No dysuria. No bloating. Bowel function UGI noted tight lap band with esophageal dilation. Patient wants the band fully emptied. Constitutional: No chills, No diaphoresis, No febrile Eyes: No redness ENT: dysphagia, No discharge Respiratory: No cough, No shortness of breath, No sputum Cardiovascular: No chest pain, No edema, No orthopenea, No palpitations Gastrointestinal: flatus, nausea, passing stool, vomiting, No constipation, No pain Genitourinary: No bleeding, No dysuria Musculoskeletal: bone/joint pain (right knee ), restricted range of motion ( right knee), No back pain Skin: No erythema, No pruritis, No rash Neurologic: No confusion, No dizziness, No headache Endocrine: No polydypsia, No polyuria Lymphatic: No adenopathy Psychological: nl mood/affect, No anxiety Immunologic: No pruritis, No rhinitis Past Medical History Osteoarthritis Work-related knee joint injury Previously morbidly obese Nausea and vomiting Dysphagia Dilated esophagus Anemia Hypokalemia Medical History: other (osteoarthritis, work related joint injury, previously obese prior to lap band surgery) Past Surgical History x3 Rotator cuff surgery on the left Lap adjustable gastric band in 2007 Meniscal repair right knee Cataract surgery Colonoscopy Family History Significant Family History: other (Mother recently. She was 92 years old. Father has multiple medical problems including CHF, COPD, and prostate cancer. ) Social History The patient is +3. She used to work designing holiday cards, currently retired. Alcohol Use: none Smoking Status: Never smoker Drug Use: none Exam/Review of Systems Vital Signs Vitals Vital Signs Date Time Temp Pulse Resp B/P Pulse Ox O2 Delivery O2 Flow Rate FiO2 03/19/16 20:00 98.8 69 18 120/58 99 Intake and Output 03/18/16 03/18/16 03/19/16 15:00 23:00 07:00 Intake Total 1290 ml 2600 ml Balance 1290 ml 2600 ml Exam Constitutional: alert, oriented, No distress Psych: nl mood/affect, No anxiety, No confusion Head: atraumatic, normocephalic Eyes: EOMI, PERRL, nl conjunctiva, No icteric ENMT: mucosa pink and moist, nl external ears & nose Neck: non-tender, supple Respiratory: normal air movement, No congested cough, No labored breathing Cardiovascular: regular rate and rhythm, No edema Gastrointestinal: non-tender, soft, No distended, No rebound or guarding Musculoskeletal: joint tenderness (Right knee), No nl extremities to inspection (RLE brace), No nl gait and stance Extremities: No calf tenderness, No cyanosis Neurological: nl mental status, nl speech, nl strength Skin: nl turgor, No diaphoresis, No rash or lesions Lymph: nl lymph nodes Results Result Diagram: 03/18/1661603/18/16616 Medications Medications Current Medications Acetaminophen (Tylenol Tab) 650 mg Q4H PRN PO PAIN AND OR ELEVATED TEMP; Start 03/15/16 at 21:30 Acetaminophen/ Codeine Phosphate (Tylenol/Codeine Liquid) 12.5 ml Q4H PRN PO PAIN Last administered on 03/16/16 12:41; Admin Dose 12.5 ML; Start 03/15/16 at 21:30 Acetaminophen/ Hydrocodone Bitart (Lortab Liq) 15 ml Q3 PRN PO PAIN Last administered on 03/16/16 08:45; Admin Dose 15 ML; Start 03/15/16 at 21:30 Bisacodyl (Dulcolax Supp) 10 mg HS PRN [place] CONSTIPATION; Start 03/15/16 at 21:30 Ondansetron HCl (Zofran Inj) 4 mg Q4H PRN IV NAUSEA AND/OR VOMITING; Start at 21:30 Diphenhydramine HCl (Benadryl) 12.5 mg Q6H PRN IV ITCHING; Start 03/15/16 at 21 :30 Naloxone HCl (Narcan) 0.4 mg PRN PRN IV SEDATION; Start 03/15/16 at 22:00 Polyethylene Glycol (Miralax) 17 gm DAILY PO Last administered on 03/19/16 08: 54; Admin Dose 17 GM; Start 03/17/16 at 09:00 Morphine Sulfate (morphine) 10 mg Q4H PRN PO PAIN Last administered on 10:06; Admin Dose 10 MG; Start 03/16/16 at 20:30 Scopolamine 1 patch 1 patch Q72H TRANSDERM Last administered on 03/17/16 09:24 ; Admin Dose 1 PATCH; Start 03/17/16 at 09:00 Ceftriaxone Sodium (Rocephin) 50 ml @ 100 mls/hr Q24H IVPB Last administered on 03/19/16 13:54; Admin Dose 100 MLS/HR; Start 03/17/16 at 14:30 Pantoprazole (Protonix Iv) 40 mg BID@06,18 IV Last administered on 03/19/16 17 :53; Admin Dose 40 MG; Start 03/17/16 at 18:00 Morphine Sulfate (morphine) 2 mg Q4H PRN IV pain Last administered on 13:54; Admin Dose 2 MG; Start 03/18/16 at 13:00 Magnesium Hydroxide 30 ml 30 ml DAILY PO Last administered on 03/19/16 16:54; Admin Dose 30 ML; Start 03/19/16 at 15:00 Dextrose/Sodium Chloride (D5-1/2ns) 1,000 ml @ 70 mls/hr [id number] IV ; Start at 16:30 GERARDO DON MD Mar 19, 2016 23:46
[2016-03-20] MEDS: PANTOPRAZOLE 40 MG INJ IV SCH ×2 (05:58→17:26)
[2016-03-20] MEDS ORDERED: LIDOCAINE 1%/EPI (MDV) 20 ML INJ INJ SCH (06:00)
[2016-03-20] MEDS: DEXTROSE 5%-0.45% NACL 1,000 ML IV SCH (06:11)
[2016-03-20] MEDS: ONDANSETRON (ODT) 4 MG TAB ODT SCH ×3 (07:05→17:26)
[2016-03-20 08:38] VITALS: BP 107/51; RESP 18
[2016-03-20] MEDS: MAGNESIUM HYDROXIDE 30ML CUP PO SCH ×2 (09:00→17:29)
[2016-03-20] MEDS: POLYETHYLENE GLYCOL 17 GM PACKET PO SCH ×2 (09:00→17:30)
[2016-03-20] MEDS: morphine 2 MG INJ IV PRN ×2 (09:14→13:12)
[2016-03-20] MEDS: SCOPOLAMINE 1.5 MG PATCH TRANSDERM SCH (09:18)
--- NOTE | 2016-03-20 11:45 | CONS ---
Date/Time of Note Date/Time of Note DATE: 03/20/16 TIME: 11:44 Consult Date/Type/Reason Admit Date/Time Mar 15, 2016 at 19:27 Type of Consultation: Gen Surgical Ordering Provider: TRACE BATES MD Subjective slept better last night Objective Vital Signs Date Time Temp Pulse Resp B/P Pulse Ox O2 Delivery O2 Flow Rate FiO2 03/20/16 08:38 98.4 58 18 107/51 97 Intake and Output 03/19/16 03/19/16 03/20/16 15:00 23:00 07:00 Intake Total 250 ml 540 ml 1070 ml Balance 250 ml 540 ml 1070 ml pulm- cta min assist ambulation Results/Medications Result Diagram: 03/18/1661603/18/16616 Medications Current Medications Acetaminophen (Tylenol Tab) 650 mg Q4H PRN PO PAIN AND OR ELEVATED TEMP; Start 03/15/16 at 21:30 Acetaminophen/ Codeine Phosphate (Tylenol/Codeine Liquid) 12.5 ml Q4H PRN PO PAIN Last administered on 03/16/16 12:41; Admin Dose 12.5 ML; Start 03/15/16 at 21:30 Acetaminophen/ Hydrocodone Bitart (Lortab Liq) 15 ml Q3 PRN PO PAIN Last administered on 03/16/16 08:45; Admin Dose 15 ML; Start 03/15/16 at 21:30 Bisacodyl (Dulcolax Supp) 10 mg HS PRN [place] CONSTIPATION; Start 03/15/16 at 21:30 Ondansetron HCl (Zofran Inj) 4 mg Q4H PRN IV NAUSEA AND/OR VOMITING; Start at 21:30 Diphenhydramine HCl (Benadryl) 12.5 mg Q6H PRN IV ITCHING; Start 03/15/16 at 21 :30 Naloxone HCl (Narcan) 0.4 mg PRN PRN IV SEDATION; Start 03/15/16 at 22:00 Polyethylene Glycol (Miralax) 17 gm DAILY PO Last administered on 03/19/16 08: 54; Admin Dose 17 GM; Start 03/17/16 at 09:00 Morphine Sulfate (morphine) 10 mg Q4H PRN PO PAIN Last administered on 10:06; Admin Dose 10 MG; Start 03/16/16 at 20:30 Scopolamine 1 patch 1 patch Q72H TRANSDERM Last administered on 03/20/16 09:18 ; Admin Dose 1 PATCH; Start 03/17/16 at 09:00 Ceftriaxone Sodium (Rocephin) 50 ml @ 100 mls/hr Q24H IVPB Last administered on 03/19/16 13:54; Admin Dose 100 MLS/HR; Start 03/17/16 at 14:30 Pantoprazole (Protonix Iv) 40 mg BID@06,18 IV Last administered on 03/20/16 05 :58; Admin Dose 40 MG; Start 03/17/16 at 18:00 Morphine Sulfate (morphine) 2 mg Q4H PRN IV pain Last administered on 09:14; Admin Dose 2 MG; Start 03/18/16 at 13:00 Magnesium Hydroxide 30 ml 30 ml DAILY PO Last administered on 03/19/16 16:54; Admin Dose 30 ML; Start 03/19/16 at 15:00 Dextrose/Sodium Chloride (D5-1/2ns) 1,000 ml @ 70 mls/hr [id number] IV Last administered on 03/20/16 06:11; Admin Dose 70 MLS/HR; Start 03/19/16 at 16:30 Lidocaine/ Epinephrine (Xylocaine 1%/ Epi (Mdv) 20 ml) 20 ml ONCE INJ ; Start at 06:00; Stop 03/20/16 at 23:30 Assessment/Plan Additional Assessment/Plan Rehab- status post right total knee arthroplasty. Overall improving. Continue to work on functional gains and knee ROM Acute pain syndrome. History of gastric lap band- f/b surgery given the emesis RUDDY WYNN MD Mar 20, 2016 11:45
--- NOTE | 2016-03-20 13:24 | PN ---
DATE: 03/20/2016 SUBJECTIVE: The patient still has episodes of nausea, difficult to tolerate p.o., even liquids as s he is awaiting surgical intervention by Dr. Prabhakar Payton to drain the patient's lap band. Otherwi se, the patient is feeling well. She is being hydrated on IV fluids. LABORATORY DATA: No new labs. MEDICATIONS: Reviewed. ASSESSMENT AND PLAN: This is a 65-year-old female with history of hypothyroidism, lap ban d, osteoarthritis, status post right knee arthropathy, presents for rehabilitation. 1. Right hip arthropathy. Continue physical therapy, occupational therapy, pain control. 2. Continue Xarelto 10 mg daily for DVT prophylaxis. 3. Hypokalemia. Monitor electrolytes. 4. Dysphagia secondary to lap band obstruction to be relieved with the drainage of the lap band by Dr. Payton. 5. Currently on IV fluids until she is back to regular oral intake. 6. Urinary tract infection on Rocephin, will discontinue treatment, as the patient is overall asymp tomatic. 7. Anemia, status post surgery. Monitor. No need for any blood products. We will follow. Dictated By: TRACE SELLERS/ROGELIO Conf#: [id number] DID#: [id number]
--- NOTE | 2016-03-20 14:05 | PN ---
Date/Time of Note Date/Time of Note DATE: 03/20/16 TIME: 14:03 Assessment/Plan Lines/Catheters IV Catheter Type (from Nrs): Peripheral IV Santacruz in Place (from Nrs): No Assessment/Plan Chief Complaint/Hosp Course 1. Dysphagia, nausea, and vomiting 2nd tight lap band. Patient wants the band emptied fully. -will obtain supplies and consent for emptying the band > brought morris needle from office since we dont have appropriate size 2. Anemia -monitor 3. Right knee injury and arthritis s/p arthroplasty -rehab 4. Dilated esophagus 2nd above -as above 5. Hypokalemia -replete Thank you, Problems: Subjective 24 Hr Interval Summary Still with n/v. No f/c. No cp/sob. No cough. No white/dizzy/visual or neuro changes. No dysuria. Bowel function. Feels dehydrated. Exam/Review of Systems Vital Signs Vitals Vital Signs Date Time Temp Pulse Resp B/P Pulse Ox O2 Delivery O2 Flow Rate FiO2 03/20/16 08:38 98.4 58 18 107/51 97 Intake and Output 03/19/16 03/19/16 03/20/16 15:00 23:00 07:00 Intake Total 250 ml 540 ml 1070 ml Balance 250 ml 540 ml 1070 ml Exam Free Text/Dictation Constitutional: alert, oriented, No distress Psych: nl mood/affect, No anxiety, No confusion Head: atraumatic, normocephalic Eyes: EOMI, PERRL, nl conjunctiva, No icteric ENMT: mucosa pink and moist, nl external ears & nose Neck: non-tender, supple Respiratory: normal air movement, No congested cough, No labored breathing Cardiovascular: regular rate and rhythm, No edema Gastrointestinal: non-tender, soft, No distended, No rebound or guarding Musculoskeletal: joint tenderness (Right knee), No nl extremities to inspection (RLE brace), No nl gait and stance Extremities: No calf tenderness, No cyanosis Neurological: nl mental status, nl speech, nl strength Skin: nl turgor, No diaphoresis, No rash or lesions Lymph: nl lymph nodes Results Result Diagram: 03/18/16 0617 03/18/16 0617 GERARDO DON MD Mar 20, 2016 14:05
--- NOTE | 2016-03-20 14:09 | OPR ---
Date/Time of Note Date/Time of Note DATE: 03/20/16 TIME: 14:05 Operative Report Procedure Date: Mar 20, 2016 Preoperative Diagnosis Nausea and vomiting secondary to a tight lap band Esophageal dilation secondary to above Postoperative Diagnosis Same Operation Performed LAP-BAND adjustment and full emptying (5 mL removed) Surgeon: GERARDO DON MD Estimated Blood Loss: none Complications: None Pt Condition Post Procedure: stable Disposition: other (own room) Indications Patient unable to tolerate oral intake due to tight lap band which was also confirmed on upper GI. Patient is requesting full emptying of the band. Risks, benefits, alternatives were fully explained to patient as per usual. Patient understand that she may regain weight. Procedure Description Patient was placed in the supine position. Abdomen was prepped and draped sterilely. Timeout was performed. Using Sommer needle the port was accessed and 5 -1/2 mL's of saline were removed. Needle was removed. Bandage was applied. Patient was given water to drink which she tolerated very easily. Copies To: CC: RUDDY WYNN MD; TRACE BATES MD, SAMUEL MD Mar 20, 2016 14:09
[2016-03-20] MEDS: CEFTRIAXONE 1 GM/50 ML (PMX) 50 ML IVPB SCH (14:14)
[2016-03-20] MEDS: RIVAROXABAN 10 MG TABLET PO SCH (17:27)
[2016-03-20 20:00] VITALS: BP 130/55; PULSE 69; RESP 18
[2016-03-21] MEDS: DEXTROSE 5%-0.45% NACL 1,000 ML IV SCH ×2 (02:47→12:53)
[2016-03-21] MEDS: PANTOPRAZOLE 40 MG INJ IV SCH ×2 (06:00→17:17)
[2016-03-21 07:30] LABS: MAGNESIUM 2.3 mg/dl (1.7-2.5); PHOSPHORUS 3.9 mg/dl (2.5-4.9)
[2016-03-21 07:31] LABS: POTASSIUM 3.9 mmol/L (3.5-5.1)
[2016-03-21 07:33] LABS: CREATININE 0.67 mg/dl (0.44-1.00)
[2016-03-21] MEDS: ONDANSETRON (ODT) 4 MG TAB ODT SCH ×3 (07:48→17:16)
[2016-03-21 08:00] VITALS: BP 109/55; PULSE 64; RESP 18
[2016-03-21] MEDS: MAGNESIUM HYDROXIDE 30ML CUP PO SCH (08:29)
[2016-03-21] MEDS: POLYETHYLENE GLYCOL 17 GM PACKET PO SCH (08:29)
[2016-03-21] MEDS: morphine 2 MG INJ IV PRN ×2 (08:30→14:19)
[2016-03-21] MEDS: HYDROCODONE/APAP (5/325) TAB PO PRN ×3 (10:58→21:45)
[2016-03-21 11:07] LABS: BASOPHILS % 0.7 % (0.0-2.0); EOSINOPHILS # 0.2 10^3/ul (0.0-0.5); EOSINOPHILS % 4.8 % (0.0-7.0); HEMOGLOBIN 9.5 g/dl (12.0-16.0); LYMPHOCYTES # 1.6 10^3/ul (0.8-2.9); LYMPHOCYTES % 34.4 % (15.0-51.0); MEAN CORPUSCULAR HEMOGLOBIN 28.8 pg (29.0-33.0); MEAN CORPUSCULAR HGB CONC 33.8 g/dl (32.0-37.0); MEAN CORPUSCULAR VOLUME 85.2 fl (82.0-101.0); MONOCYTE # 0.4 10^3/ul (0.3-0.9); MONOCYTES % 8.8 % (0.0-11.0); NEUTROPHIL # 2.5 10^3/ul (1.6-7.5); NEUTROPHILS % 51.3 % (39.0-77.0); PLATELET COUNT 280 10^3/UL (140-440); RED BLOOD COUNT 3.29 10^6/ul (4.20-5.40); RED CELL DISTRIBUTION WIDTH 13.3 % (11.5-14.5); UNCORRECTED WBC 4.8 10^3/ul (4.8-10.8); WHITE BLOOD COUNT 4.8 10^3/ul (4.8-10.8)
[2016-03-21 11:10] LABS: CONDITION 1
--- NOTE | 2016-03-21 11:12 | CONS ---
Date/Time of Note Date/Time of Note DATE: 03/21/16 TIME: 11:10 Consult Date/Type/Reason Admit Date/Time Mar 15, 2016 at 19:27 Type of Consultation: Gen Surgical Ordering Provider: TRACE BATES MD Subjective Feels so much better after seen by Dr Payton Objective Vital Signs Date Time Temp Pulse Resp B/P Pulse Ox O2 Delivery O2 Flow Rate FiO2 03/21/16 08:00 98.8 64 18 109/55 98 Room Air Intake and Output 03/20/16 03/20/16 03/21/16 14:59 22:59 06:59 Intake Total 1420 ml 640 ml 1190 ml Balance 1420 ml 640 ml 1190 ml pulm- cta cga ambulation 150 feet Results/Medications Result Diagram: 03/18/16 0603/21/16 0600 Results 24 hrs Laboratory Tests Test 03/21/16 06:00 03/21/16 06:02 Anion Gap 15 Blood Urea Nitrogen 10 Calcium Level 8.0 L Carbon Dioxide Level 28 Chloride Level 102 Creatinine 0.67 Glucose Level 87 Potassium Level 3.9 Sodium Level 141 Magnesium Level 2.3 Phosphorus Level 3.9 Medications Current Medications Acetaminophen (Tylenol Tab) 650 mg Q4H PRN PO PAIN AND OR ELEVATED TEMP; Start 03/15/16 at 21:30 Acetaminophen/ Codeine Phosphate (Tylenol/Codeine Liquid) 12.5 ml Q4H PRN PO PAIN Last administered on 03/16/16t 12:41; Admin Dose 12.5 ML; Start 03/15/16 at 21:30 Acetaminophen/ Hydrocodone Bitart (Lortab Liq) 15 ml Q3 PRN PO PAIN Last administered on 03/16/16 08:45; Admin Dose 15 ML; Start 03/15/16 at 21:30 Bisacodyl (Dulcolax Supp) 10 mg HS PRN [place] CONSTIPATION; Start 03/15/16 at 21:30 Ondansetron HCl (Zofran Inj) 4 mg Q4H PRN IV NAUSEA AND/OR VOMITING; Start at 21:30 Diphenhydramine HCl (Benadryl) 12.5 mg Q6H PRN IV ITCHING; Start 03/15/16 at 21 :30 Naloxone HCl (Narcan) 0.4 mg PRN PRN IV SEDATION; Start 03/15/16 at 22:00 Polyethylene Glycol (Miralax) 17 gm DAILY PO Last administered on 03/21/16 08: 29; Admin Dose 17 GM; Start 03/17/16 at 09:00 Morphine Sulfate (morphine) 10 mg Q4H PRN PO PAIN Last administered on 10:06; Admin Dose 10 MG; Start 03/16/16 at 20:30 Scopolamine 1 patch 1 patch Q72H TRANSDERM Last administered on 03/20/16 09:18 ; Admin Dose 1 PATCH; Start 03/17/16 at 09:00 Ceftriaxone Sodium (Rocephin) 50 ml @ 100 mls/hr Q24H IVPB Last administered on 03/20/16 14:14; Admin Dose 100 MLS/HR; Start 03/17/16 at 14:30 Pantoprazole (Protonix Iv) 40 mg BID@06,18 IV Last administered on 03/21/16 06: 00; Admin Dose 40 MG; Start 03/17/16 at 18:00 Morphine Sulfate (morphine) 2 mg Q4H PRN IV pain Last administered on 03/21/16 08:30; Admin Dose 2 MG; Start 03/18/16 at 13:00 Magnesium Hydroxide 30 ml 30 ml DAILY PO Last administered on 03/21/16 08:29; Admin Dose 30 ML; Start 03/19/16 at 15:00 Dextrose/Sodium Chloride (D5-1/2ns) 1,000 ml @ 70 mls/hr [id number] IV Last administered on 03/21/16 02:47; Admin Dose 70 MLS/HR; Start 03/19/16 at 16:30 Acetaminophen/ Hydrocodone Bitart ([place] (5/325)) 1 tab Q4H PRN PO MODERATE PAIN LEVEL 4-6; Start 03/21/16 at 11:00 Acetaminophen/ Hydrocodone Bitart ([place] (5/325)) 2 tab Q4H PRN PO SEVERE PAIN LEVEL 7-10 Last administered on 03/21/16 10:58; Admin Dose 2 TAB; Start 03/21/16 at 11:00 Assessment/Plan Additional Assessment/Plan Rehab- status post right total knee arthroplasty. Steady progress,continue to work on functional gains and knee ROM Acute pain syndrome- pain meds adjusted now that she can tolerate po pain medications History of gastric lap band- f/b surgery. Improved symptoms RUDDY WYNN MD Mar 21, 2016 11:12
[2016-03-21] MEDS: CEFTRIAXONE 1 GM/50 ML (PMX) 50 ML IVPB SCH (14:11)
--- NOTE | 2016-03-21 15:52 | CONS ---
Date/Time of Note Date/Time of Note DATE: 03/21/16 TIME: 15:50 Assessment/Plan Assessment/Plan Additional Assessment/Plan Additional Assessment/Plan Impression: 1. dysphagia: totally resolved after removal of fluid from LapBand 2. constipation: may contribute to pt's dysphagia 3. anemia: r/o gib 4. Right knee total arthroplasty. 5. History of hypothyroidism. TSH normal now Recommendations: 1. continue soft diet and advance as tolerated by patient 2. continue PPI to bid dosing to treat the likely esophagitis and gastritis 3. continue qAC zofran odt Consultation Date/Type/Reason Admit Date/Time Mar 15, 2016 at 19:27 Type of Consultation: Gen Surgical Referring Provider: TRACE BATES MD 24 HR Interval Summary Free Text/Dictation dysphagia resolved no heart burn Constitutional: improved, no complaints Exam/Review of Systems Vital Signs Vitals Vital Signs Date Time Temp Pulse Resp B/P Pulse Ox O2 Delivery O2 Flow Rate FiO2 03/21/16 08:00 98.8 64 18 109/55 98 Room Air Intake and Output 03/20/16 03/20/16 03/21/16 15:00 23:00 07:00 Intake Total 1420 ml 640 ml 1190 ml Balance 1420 ml 640 ml 1190 ml Exam Constitutional: alert, oriented, well developed Psych: nl mood/affect, no complaints Head: atraumatic, normocephalic Eyes: EOMI, PERRL, nl conjunctiva, nl lids, nl sclera ENMT: nl external ears & nose, nl lips & teeth, nl nasal mucosa & septum Neck: non-tender, supple Respiratory: clear to auscultation, normal air movement Cardiovascular: nl pulses, regular rate and rhythm Gastrointestinal: nl liver, spleen, non-tender, soft Musculoskeletal: nl extremities to inspection, nl gait and stance Extremities: normal pulses Neurological: [employer] II-XII intact, nl mental status, nl speech, nl strength Skin: nl turgor, No rash or lesions Lymph: nl lymph nodes Results Result Diagram: 03/21/16 0602 03/21/16 0600 Results 24 hrs Laboratory Tests Test 03/21/16 06:00 03/21/16 06:02 Anion Gap 15 Blood Urea Nitrogen 10 Calcium Level 8.0 L Carbon Dioxide Level 28 Chloride Level 102 Creatinine 0.67 Glucose Level 87 Potassium Level 3.9 Sodium Level 141 Basophils # 0.0 Basophils % 0.7 Blood Morphology Comment Eosinophils # 0.2 Eosinophils % 4.8 Hematocrit 28.0 L Hemoglobin 9.5 L Lymphocytes # 1.6 Lymphocytes % 34.4 Magnesium Level 2.3 Mean Corpuscular Hemoglobin 28.8 L Mean Corpuscular Hemoglobin Concent 33.8 Mean Corpuscular Volume 85.2 Mean Platelet Volume 8.0 Monocytes # 0.4 Monocytes % 8.8 Neutrophils # 2.5 Neutrophils % 51.3 Nucleated Red Blood Cells # 0.0 Nucleated Red Blood Cells % 0.0 Phosphorus Level 3.9 Platelet Count 280 Red Blood Count 3.29 L Red Cell Distribution Width 13.3 White Blood Count 4.8 Medications Medications Current Medications Acetaminophen (Tylenol Tab) 650 mg Q4H PRN PO PAIN AND OR ELEVATED TEMP; Start 03/15/16 at 21:30 Acetaminophen/ Codeine Phosphate (Tylenol/Codeine Liquid) 12.5 ml Q4H PRN PO PAIN Last administered on 03/16/16 12:41; Admin Dose 12.5 ML; Start 03/15/16 at 21:30 Acetaminophen/ Hydrocodone Bitart (Lortab Liq) 15 ml Q3 PRN PO PAIN Last administered on 03/16/16 08:45; Admin Dose 15 ML; Start 03/15/16 at 21:30 Bisacodyl (Dulcolax Supp) 10 mg HS PRN [place] CONSTIPATION; Start 03/15/16 at 21:30 Ondansetron HCl (Zofran Inj) 4 mg Q4H PRN IV NAUSEA AND/OR VOMITING; Start at 21:30 Diphenhydramine HCl (Benadryl) 12.5 mg Q6H PRN IV ITCHING; Start 03/15/16 at 21 :30 Naloxone HCl (Narcan) 0.4 mg PRN PRN IV SEDATION; Start 03/15/16 at 22:00 Polyethylene Glycol (Miralax) 17 gm DAILY PO Last administered on 03/21/16 08: 29; Admin Dose 17 GM; Start 03/17/16 at 09:00 Morphine Sulfate (morphine) 10 mg Q4H PRN PO PAIN Last administered on 10:06; Admin Dose 10 MG; Start 03/16/16 at 20:30 Scopolamine 1 patch 1 patch Q72H TRANSDERM Last administered on 03/20/16 09:18 ; Admin Dose 1 PATCH; Start 03/17/16 at 09:00 Ceftriaxone Sodium (Rocephin) 50 ml @ 100 mls/hr Q24H IVPB Last administered on 03/21/16 14:11; Admin Dose 100 MLS/HR; Start 03/17/16 at 14:30 Pantoprazole (Protonix Iv) 40 mg BID@06,18 IV Last administered on 03/21/16 06: 00; Admin Dose 40 MG; Start 03/17/16 at 18:00 Morphine Sulfate (morphine) 2 mg Q4H PRN IV pain Last administered on 03/21/16 14:19; Admin Dose 2 MG; Start 03/18/16 at 13:00 Magnesium Hydroxide 30 ml 30 ml DAILY PO Last administered on 03/21/16 08:29; Admin Dose 30 ML; Start 03/19/16 at 15:00 Dextrose/Sodium Chloride (D5-1/2ns) 1,000 ml @ 70 mls/hr [id number] IV Last administered on 03/21/16 12:53; Admin Dose 70 MLS/HR; Start 03/19/16 at 16:30 Acetaminophen/ Hydrocodone Bitart ([place] (5/325)) 1 tab Q4H PRN PO MODERATE PAIN LEVEL 4-6; Start 03/21/16 at 11:00 Acetaminophen/ Hydrocodone Bitart ([place] (5/325)) 2 tab Q4H PRN PO SEVERE PAIN LEVEL 7-10 Last administered on 03/21/16 10:58; Admin Dose 2 TAB; Start 03/21/16 at 11:00 GLADIS PRICE MD Mar 21, 2016 15:52
[2016-03-21] MEDS: RIVAROXABAN 10 MG TABLET PO SCH (17:15)
--- NOTE | 2016-03-21 18:53 | PN ---
DATE: 03/21/2016 SUBJECTIVE: The patient is seen. The patient is status post Lap Band adjustment and fluid emptying of 5 mL which was removed. Post-procedure, the patient was able to drink water and now able to garrett erate her diet. No recurrent episodes of nausea, vomiting. Patient is doing well. PHYSICAL EXAMINATION: VITAL SIGNS: Temperature 98.8, pulse 64, respirations 18, blood pressure 109/55, saturation 98%. GENERAL: The patient is in no acute distress. HEENT: Normocephalic, atraumatic. Pale. CARDIOVASCULAR: Positive S1 and S2, regular rate. LUNGS: Clear. ABDOMEN: Soft, nontender. EXTREMITIES: No clubbing, cyanosis, or edema. Right knee in a special bandage. LABORATORY DATA: White count is 4.8, hemoglobin 9.5, hematocrit 28, platelet count of 280 with norm al differential. Chemistry: Sodium 141, potassium 3.9, chloride 102, bicarbonate 28, BUN is 10, cr eatinine 0.67, glucose of 87. B12 was 850. TSH 3.56. UA was positive, but cultures showed mixed o rganisms. MEDICATIONS: All reviewed and include: 1. [place] p.r.n. 2. D5 half normal at 70 mL an hour which we will stop if patient not tolerating diet. 3. Milk of magnesia daily. 4. Morphine p.r.n. 5. Protonix 40 IV b.i.d. 6. Zofran p.r.n. 7. Rocephin 1 gram q. 24 hours. 8. Scopolamine q. 72 hours. 9. Xarelto 10 mg with dinner. 10. Narcan p.r.n. 11. Tylenol p.r.n. 12. Ambien p.r.n. 13. Tylenol p.r.n. with codeine. 14. Lortab p.r.n. 15. Dulcolax p.r.n. 16. Zofran p.r.n. ASSESSMENT AND PLAN: This is a 65-year-old female with history of hypothyroidism, Lap Ban d, osteoarthritis, status post right knee arthroplasty, presents for rehabilitation. 1. Right hip arthroplasty. Continue physical therapy, occupational therapy and pain control. Cherise ins on intravenous pain medications. Hopefully, we can switch to oral medications. 2. Continue Xarelto 10 mg daily for deep venous thrombosis prophylaxis. 3. Hypokalemia, resolved. 4. Dysphagia secondary to Lap Band obstruction, status post fluid removal and now there is definite ly relief and the patient is able to tolerate diet. Outpatient followup with Dr. Payton. 5. Hep-Lock intravenous fluids. 6. Urinary tract infection. We will discontinue Rocephin. 7. Anemia. Hemoglobin and hematocrit is stable postoperatively. No need for blood products. 8. Continue physical therapy with the goal for her to go home in the near future. Case discussed w [facility] nursing staff. We will follow. Dictated By: TRACE SELLERS/ROGELIO Conf#: [id number] DID#: [id number]
[2016-03-21 20:00] VITALS: BP 114/58; RESP 16
[2016-03-21] MEDS: ZOLPIDEM 5 MG TAB PO PRN (20:11)
--- NOTE | 2016-03-21 23:33 | PN ---
Date/Time of Note Date/Time of Note DATE: 03/21/16 TIME: 23:30 Assessment/Plan Lines/Catheters IV Catheter Type (from Nrs): Peripheral IV Santacruz in Place (from Nrs): No Assessment/Plan Chief Complaint/Hosp Course 1. Dysphagia, nausea, and vomiting 2nd tight lap band s/p full emptying of the band 03/20. -diet as tolerated 2. Anemia -monitor 3. Right knee injury and arthritis s/p arthroplasty -rehab 4. Dilated esophagus 2nd above -as above 5. Hypokalemia corrected Thank you, Problems: Subjective 24 Hr Interval Summary s/p Lap band adjustment and emptying of band 03/20. No n/v. Taking food. No f/ c. No cp/sob. No cough. No white/dizzy/visual or neuro changes. No dysuria. Exam/Review of Systems Vital Signs Vitals Vital Signs Date Time Temp Pulse Resp B/P Pulse Ox O2 Delivery O2 Flow Rate FiO2 03/21/16 20:00 97.9 55 16 114/58 98 03/21/16 08:00 Room Air Intake and Output 03/20/16 03/20/16 03/21/16 15:00 23:00 07:00 Intake Total 1420 ml 640 ml 1190 ml Balance 1420 ml 640 ml 1190 ml Exam Free Text/Dictation Constitutional: alert, oriented, No distress Psych: nl mood/affect, No anxiety, No confusion Head: atraumatic, normocephalic Eyes: EOMI, PERRL, nl conjunctiva, No icteric ENMT: mucosa pink and moist, nl external ears & nose Neck: non-tender, supple Respiratory: normal air movement, No congested cough, No labored breathing Cardiovascular: regular rate and rhythm, No edema Gastrointestinal: non-tender, soft, No distended, No rebound or guarding Musculoskeletal: joint tenderness (Right knee), No nl extremities to inspection (RLE brace), No nl gait and stance Extremities: No calf tenderness, No cyanosis Neurological: nl mental status, nl speech, nl strength Skin: nl turgor, No diaphoresis, No rash or lesions Lymph: nl lymph nodes Results Result Diagram: 03/21/16 0602 03/21/16 0600 GERARDO DON MD Mar 21, 2016 23:33
[2016-03-22] MEDS: HYDROCODONE/APAP (5/325) TAB PO PRN ×4 (03:02→21:52)
[2016-03-22] MEDS ORDERED: PANTOPRAZOLE (EC) 40 MG TAB PO SCH (06:00)
[2016-03-22 08:00] VITALS: BP 100/53; RESP 16
[2016-03-22] MEDS: POLYETHYLENE GLYCOL 17 GM PACKET PO SCH (08:54)
[2016-03-22] MEDS: MAGNESIUM HYDROXIDE 30ML CUP PO SCH (08:54)
[2016-03-22] MEDS: ONDANSETRON (ODT) 4 MG TAB ODT SCH ×2 (08:55→11:39)
--- NOTE | 2016-03-22 11:33 | RADRPT ---
PROCEDURE: XR Chest. CLINICAL INDICATION: Chest pain. Fluid overload. TECHNIQUE: Single frontal view. COMPARISON: None. FINDINGS: The lungs are clear. The heart size is normal. There is no pleural effusion. There is no pneumothorax. IMPRESSION: 1. Normal chest radiograph. 2. No pulmonary edema. RPTAT: QQ .Librado Acosta MD, MD Date Time Electronically viewed and signed by .Librado Acosta MD, MD on 03/22/2016 11:32 .R/
[2016-03-22 11:50] LABS: BASOPHILS % 0.8 % (0.0-2.0); EOSINOPHILS # 0.2 10^3/ul (0.0-0.5); EOSINOPHILS % 3.1 % (0.0-7.0); HEMATOCRIT 31.3 % (37.0-47.0); HEMOGLOBIN 10.4 g/dl (12.0-16.0); LYMPHOCYTES # 1.4 10^3/ul (0.8-2.9); LYMPHOCYTES % 23.3 % (15.0-51.0); MEAN CORPUSCULAR HEMOGLOBIN 28.4 pg (29.0-33.0); MEAN CORPUSCULAR HGB CONC 33.3 g/dl (32.0-37.0); MEAN CORPUSCULAR VOLUME 85.5 fl (82.0-101.0); MEAN PLATELET VOLUME 7.6 fl (7.4-10.4); MONOCYTE # 0.4 10^3/ul (0.3-0.9); NEUTROPHILS % 66.8 % (39.0-77.0); PLATELET COUNT 364 10^3/UL (140-440); RED BLOOD COUNT 3.66 10^6/ul (4.20-5.40); RED CELL DISTRIBUTION WIDTH 13.6 % (11.5-14.5); UNCORRECTED WBC 5.9 10^3/ul (4.8-10.8); WHITE BLOOD COUNT 5.9 10^3/ul (4.8-10.8)
--- NOTE | 2016-03-22 11:53 | CONS ---
Date/Time of Note Date/Time of Note DATE: 03/22/16 TIME: 11:51 Consult Date/Type/Reason Admit Date/Time Mar 15, 2016 at 19:27 Type of Consultation: Gen Surgical Ordering Provider: TRACE BATES MD Subjective Patient reported chest pressure this morning. Denies radiation of pain or SOB. She is also concerned regarding knee ROM Objective Pulm- CTA card- S1S2 aabd- soft, Nt. +bs Vital Signs Date Time Temp Pulse Resp B/P Pulse Ox O2 Delivery O2 Flow Rate FiO2 03/22/16 08:00 98.2 55 16 100/53 98 03/21/16 08:00 Room Air Intake and Output 03/21/16 03/21/16 03/22/16 15:00 23:00 07:00 Intake Total 790 ml 1400 ml 900 ml Balance 790 ml 1400 ml 900 ml Results/Medications Result Diagram: 03/21/16 0602 03/21/16 0600 Results 24 hrs Laboratory Tests Test 03/22/16 07:36 Bedside Glucose 84 Medications Current Medications Acetaminophen (Tylenol Tab) 650 mg Q4H PRN PO PAIN AND OR ELEVATED TEMP; Start 03/15/16 at 21:30 Acetaminophen/ Codeine Phosphate (Tylenol/Codeine Liquid) 12.5 ml Q4H PRN PO PAIN Last administered on 03/16/16 12:41; Admin Dose 12.5 ML; Start 03/15/16 at 21:30 Acetaminophen/ Hydrocodone Bitart (Lortab Liq) 15 ml Q3 PRN PO PAIN Last administered on 03/16/16 08:45; Admin Dose 15 ML; Start 03/15/16 at 21:30 Bisacodyl (Dulcolax Supp) 10 mg HS PRN [place] CONSTIPATION; Start 03/15/16 at 21:30 Ondansetron HCl (Zofran Inj) 4 mg Q4H PRN IV NAUSEA AND/OR VOMITING; Start at 21:30 Diphenhydramine HCl (Benadryl) 12.5 mg Q6H PRN IV ITCHING; Start 03/15/16 at 21 :30 Naloxone HCl (Narcan) 0.4 mg PRN PRN IV SEDATION; Start 03/15/16 at 22:00 Polyethylene Glycol (Miralax) 17 gm DAILY PO Last administered on 03/22/16 08: 54; Admin Dose 17 GM; Start 03/17/16 at 09:00 Morphine Sulfate (morphine) 10 mg Q4H PRN PO PAIN Last administered on 10:06; Admin Dose 10 MG; Start 03/16/16 at 20:30 Scopolamine (Transderm-Scop) 1 patch Q72H TRANSDERM Last administered on 09:18; Admin Dose 1 PATCH; Start 03/17/16 at 09:00 Morphine Sulfate (morphine) 2 mg Q4H PRN IV pain Last administered on 03/21/16 14:19; Admin Dose 2 MG; Start 03/18/16 at 13:00 Magnesium Hydroxide (Milk Of Mag) 30 ml DAILY PO Last administered on 03/22/16 08:54; Admin Dose 30 ML; Start 03/19/16 at 15:00 Acetaminophen/ Hydrocodone Bitart ([place] (5/325)) 1 tab Q4H PRN PO MODERATE PAIN LEVEL 4-6 Last administered on 03/22/16 11:13; Admin Dose 1 TAB; Start 03/21 at 11:00 Acetaminophen/ Hydrocodone Bitart ([place] (5/325)) 2 tab Q4H PRN PO SEVERE PAIN LEVEL 7-10 Last administered on 03/21/16 16:07; Admin Dose 2 TAB; Start 03/21/16 at 11:00 Pantoprazole (Protonix Tab) 40 mg BID@06,18 PO ; Start 03/22/16 at 18:00 Assessment/Plan Additional Assessment/Plan Rehab- status post right total knee arthroplasty. Hold therapy today due to chest pain/pressure chest pressure- EKG, cardiac enzymes Acute pain syndrome- pain meds adjusted now that she can tolerate po pain medications History of gastric lap band- f/b surgery. Improved symptoms RUDDY WYNN MD Mar 22, 2016 11:53
[2016-03-22 11:58] LABS: CONDITION 1
[2016-03-22 12:06] LABS: CHLORIDE 100 mmol/L (97-110)
[2016-03-22 12:07] LABS: ALBUMIN 3.4 g/dl (3.3-4.9); POTASSIUM 3.6 mmol/L (3.5-5.1); SODIUM 140 mmol/L (135-144)
[2016-03-22 12:10] LABS: ALANINE AMINOTRANSFERASE 13 IU/L (13-69); ALBUMIN/GLOBULIN RATIO 0.94; ALKALINE PHOSPHATASE 52 IU/L (42-121); ANION GAP 15 (8-16); ASPARTATE AMINO TRANSFERASE 16 IU/L (15-46); BILIRUBIN,INDIRECT 0.3 mg/dl (0-1.1); BILIRUBIN,TOTAL 0.3 mg/dl (0.2-1.3); BLOOD UREA NITROGEN 14 mg/dl (7-20); CALCIUM 8.5 mg/dl (8.4-10.2); CARBON DIOXIDE 29 mmol/L (21-31); CREATINE KINASE 43 IU/L (23-200); CREATININE 0.74 mg/dl (0.44-1.00); GLUCOSE 92 mg/dl (70-220)
[2016-03-22 12:18] LABS: CK-MB < 0.22 ng/ml (0.0-2.4); TROPONIN-I < 0.012 ng/ml (0.00-0.12)
[2016-03-22] MEDS ORDERED: NITROGLYCERIN (SL) 0.4 MG TAB SL PRN (12:30)
[2016-03-22] MEDS ORDERED: ALBUTEROL/IPRATROPIUM (NEB) 3 ML AMP HHN PRN (12:30)
--- NOTE | 2016-03-22 14:31 | PN ---
DATE: 03/22/2016 SUBJECTIVE: The patient this morning was experiencing chest pressure with associated shortness of b reath. EKG was done which showed sinus bradycardia at 58 beats per minute, but otherwise a normal E KG. The patient was saturating well at 98% on room air. Troponin was ordered as well and a chest x -ray. The chest x-ray was within normal limits. I was suspecting possible chest pain may be related to her recent laparoscopic band decompression and possibly esophageal related. PHYSICAL EXAMINATION: VITAL SIGNS: Temperature 98.2, pulse 55, respirations 16, blood pressure 100/53, saturation 98% on room air. GENERAL: The patient is in no acute distress. HEENT: Normocephalic, atraumatic. Pale. CARDIOVASCULAR: S1, S2. Regular rate and rhythm. LUNGS: Clear. ABDOMEN: Soft, nontender. EXTREMITIES: There is no clubbing, cyanosis, or edema. LABORATORY: Labs for today are currently pending. Glucose level earlier was 84. Chest x-ray shows a normal chest radiograph. No pulmonary edema. MEDICATIONS: Include: 1. I increased her Protonix to 40 b.i.d. 2. [place] 5/325 q.4h. p.r.n. 3. Milk of Magnesia daily. 4. Morphine sulfate 2 mg IV q.4 p.r.n. 5. Zofran routine, 4 mg t.i.d. with meals. 6. MiraLax 17 grams daily. 7. Scopolamine patch q.72h. 8. Xarelto 10 mg q. dinner. 9. Narcan p.r.n. 10. Tylenol p.r.n. 11. Lortab p.r.n. 12. Dulcolax p.r.n. 13. Benadryl p.r.n. ASSESSMENT AND PLAN: This is a 65-year-old female with a history of hypothyroidism, lap b and, osteoarthritis, status post right knee arthroplasty, who presents for rehabilitation. 1. Right hip arthroplasty. Continue physical therapy, occupational therapy and pain control. X-ra y of the right knee will be obtained for followup. 2. The patient is on deep vein thrombosis on Xarelto 10 mg daily. 3. Chest pain. Unlikely cardiac, as her EKG is unremarkable. Per description it changes with move ment. This may be muscular, esophageal or GI related. In the meantime, follow up with serial tropo nins. Continue supportive care and breathing treatments as needed will be provided. Diet, to roberta nue the same as tolerated. Will discuss with GI and the surgical team if these symptoms are usual. 4. Status post urinary tract infection. Finished a course of antibiotics with Rocephin. 5. Anemia. Hemoglobin and hematocrit remain stable. Hemodiluted, status post IV hydration. 6. Continue gastrointestinal prophylaxis with Protonix. 7. Will continue to monitor her symptoms closely. Otherwise the patient is doing better. We will follow. Dictated By: TRACE SELLERS/ROGELIO Conf#: [id number] DID#: [id number]
[2016-03-22] MEDS: DIPHENOXYLATE/ATROPINE TAB PO PRN ×2 (16:00→21:51)
[2016-03-22] MEDS: RIVAROXABAN 10 MG TABLET PO SCH (17:29)
[2016-03-22] MEDS: PANTOPRAZOLE (EC) 40 MG TAB PO SCH (17:29)
--- NOTE | 2016-03-22 19:20 | RADRPT ---
Vent Rate: 58 bpm RR Interval: 0 msec [place] Interval: 126 msec QRS Duration: 82 msec QT Interval: 454 msec QTC Interval: 445 msec P-R-T [place]: 74 - 69 - 69 degrees Sinus bradycardia Otherwise normal ECG Electronically Signed By: Yony Meza [id number]
[2016-03-22 19:55] VITALS: BP 102/56; RESP 18
--- NOTE | 2016-03-22 20:35 | PN ---
Date/Time of Note Date/Time of Note DATE: 03/22/16 TIME: 20:33 Assessment/Plan Lines/Catheters IV Catheter Type (from Nrs): Peripheral IV Santacruz in Place (from Nrs): No Assessment/Plan Chief Complaint/Hosp Course 1. Dysphagia, nausea, and vomiting 2nd tight lap band s/p full emptying of the band 03/20. Resolved -diet as tolerated 2. Chest pressure with some shortness of breath probably noncardiac. However may be due to GI issues with release of the lap band causing some reflux and irritation. Improved. -Nutrition and lifestyle optimization -Cardiac workup in process 3. Right knee injury and arthritis s/p arthroplasty -rehab 4. Dilated esophagus 2nd above -as above 5. Anemia -monitor Thank you, Problems: Subjective 24 Hr Interval Summary Chest pressure with some shortness of breath today however improved. EKG noted with bradycardia. S/p Lap band adjustment and emptying of band 03/20. No n/v. Taking food. No f/c. No cough. No white/dizzy/visual or neuro changes. No dysuria. Exam/Review of Systems Vital Signs Vitals Vital Signs Date Time Temp Pulse Resp B/P Pulse Ox O2 Delivery O2 Flow Rate FiO2 03/22/16 19:55 98.3 59 18 102/56 97 03/21/16 08:00 Room Air Intake and Output 03/21/16 03/21/16 03/22/16 15:00 23:00 07:00 Intake Total 790 ml 1400 ml 900 ml Balance 790 ml 1400 ml 900 ml Exam Free Text/Dictation Constitutional: alert, oriented, No distress Psych: nl mood/affect, No anxiety, No confusion Head: atraumatic, normocephalic Eyes: EOMI, PERRL, nl conjunctiva, No icteric ENMT: mucosa pink and moist, nl external ears & nose Neck: non-tender, supple Respiratory: normal air movement, No congested cough, No labored breathing Cardiovascular: regular rate and rhythm, No edema Gastrointestinal: non-tender, soft, No distended, No rebound or guarding Musculoskeletal: joint tenderness (Right knee), No nl extremities to inspection (RLE brace), No nl gait and stance Extremities: No calf tenderness, No cyanosis Neurological: nl mental status, nl speech, nl strength Skin: nl turgor, No diaphoresis, No rash or lesions Lymph: nl lymph nodes Results Result Diagram: 03/22/16 1140 03/22/16 1140 GERARDO DON MD Mar 22, 2016 20:35
[2016-03-22] MEDS: ZOLPIDEM 5 MG TAB PO PRN (21:52)
[2016-03-23] MEDS: PANTOPRAZOLE (EC) 40 MG TAB PO SCH ×2 (06:09→17:44)
[2016-03-23 06:41] LABS: BASOPHILS % 0.9 % (0.0-2.0); EOSINOPHILS # 0.3 10^3/ul (0.0-0.5); EOSINOPHILS % 5.7 % (0.0-7.0); HEMATOCRIT 27.5 % (37.0-47.0); HEMOGLOBIN 9.3 g/dl (12.0-16.0); LYMPHOCYTES # 1.8 10^3/ul (0.8-2.9); LYMPHOCYTES % 40.2 % (15.0-51.0); MEAN CORPUSCULAR HEMOGLOBIN 28.9 pg (29.0-33.0); MEAN CORPUSCULAR HGB CONC 33.9 g/dl (32.0-37.0); MEAN CORPUSCULAR VOLUME 85.2 fl (82.0-101.0); MEAN PLATELET VOLUME 7.7 fl (7.4-10.4); MONOCYTE # 0.4 10^3/ul (0.3-0.9); MONOCYTES % 7.7 % (0.0-11.0); NEUTROPHIL # 2.1 10^3/ul (1.6-7.5); NEUTROPHILS % 45.5 % (39.0-77.0); PLATELET COUNT 311 10^3/UL (140-440); RED BLOOD COUNT 3.22 10^6/ul (4.20-5.40); RED CELL DISTRIBUTION WIDTH 13.1 % (11.5-14.5); UNCORRECTED WBC 4.5 10^3/ul (4.8-10.8); WHITE BLOOD COUNT 4.5 10^3/ul (4.8-10.8)
[2016-03-23 06:49] LABS: MAGNESIUM 2.3 mg/dl (1.7-2.5); PHOSPHORUS 4.6 mg/dl (2.5-4.9)
[2016-03-23 06:51] LABS: ALBUMIN 2.9 g/dl (3.3-4.9); POTASSIUM 3.9 mmol/L (3.5-5.1)
[2016-03-23 06:53] LABS: CREATININE 0.73 mg/dl (0.44-1.00)
[2016-03-23 06:54] LABS: ALBUMIN/GLOBULIN RATIO 0.87; BILIRUBIN,INDIRECT 0.1 mg/dl (0-1.1); BILIRUBIN,TOTAL 0.1 mg/dl (0.2-1.3); TOTAL PROTEIN 6.2 g/dl (6.1-8.1)
[2016-03-23 06:55] LABS: CALCIUM 8.2 mg/dl (8.4-10.2)
[2016-03-23 07:08] LABS: TROPONIN-I < 0.012 ng/ml (0.00-0.12)
[2016-03-23 07:30] VITALS: BP 112/58; RESP 18
[2016-03-23 07:53] LABS: CONDITION 1
[2016-03-23] MEDS: SCOPOLAMINE 1.5 MG PATCH TRANSDERM SCH (08:22)
[2016-03-23] MEDS: HYDROCODONE/APAP (5/325) TAB PO PRN ×3 (08:26→21:00)
[2016-03-23] MEDS: MAGNESIUM HYDROXIDE 30ML CUP PO SCH (09:00)
[2016-03-23] MEDS: POLYETHYLENE GLYCOL 17 GM PACKET PO SCH (09:00)
[2016-03-23] MEDS: DIPHENOXYLATE/ATROPINE TAB PO PRN (09:23)
[2016-03-23] MEDS: morphine 2 MG INJ IV PRN ×2 (10:55→15:26)
--- NOTE | 2016-03-23 11:35 | CONS ---
Date/Time of Note Date/Time of Note DATE: 03/23/16 TIME: 11:26 Consult Date/Type/Reason Admit Date/Time Mar 15, 2016 at 19:27 Type of Consultation: Gen Surgical Ordering Provider: TRACE BATES MD Subjective Feeling much better Objective pulm- cta sba ambulation 200 feet Vital Signs Date Time Temp Pulse Resp B/P Pulse Ox O2 Delivery O2 Flow Rate FiO2 03/23/16 07:30 98.6 60 18 112/58 98 03/21/16 08:00 Room Air Intake and Output 03/22/16 03/22/16 03/23/16 15:00 23:00 07:00 Intake Total 840 ml 360 ml 480 ml Output Total 200 ml Balance 840 ml 360 ml 280 ml Results/Medications Result Diagram: 03/23/16 0610 03/23/16 0610 Results 24 hrs Laboratory Tests Test 03/22/16 11:40 03/23/16 06:10 Alanine Aminotransferase (ALT/SGPT) 13 15 Albumin 3.4 2.9 L Albumin/Globulin Ratio 0.94 0.87 Alkaline Phosphatase 52 53 Anion Gap 15 13 Aspartate Amino Transf (AST/SGOT) 16 17 Basophils # 0.0 0.0 Basophils % 0.8 0.9 Blood Morphology Comment Blood Urea Nitrogen 14 15 Calcium Level 8.5 8.2 L Carbon Dioxide Level 29 28 Chloride Level 100 103 Creatine Kinase 43 Creatine Kinase Index 0.5 Creatinine 0.74 0.73 Creatinine Kinase MB (Mass) < 0.22 Direct Bilirubin 0.00 0.00 Eosinophils # 0.2 0.3 Eosinophils % 3.1 5.7 Globulin 3.60 H 3.30 H Glucose Level 92 88 Hematocrit 31.3 L 27.5 L Hemoglobin 10.4 L 9.3 L Indirect Bilirubin 0.3 0.1 Lymphocytes # 1.4 1.8 Lymphocytes % 23.3 40.2 Mean Corpuscular Hemoglobin 28.4 L 28.9 L Mean Corpuscular Hemoglobin Concent 33.3 33.9 Mean Corpuscular Volume 85.5 85.2 Mean Platelet Volume 7.6 7.7 Monocytes # 0.4 0.4 Monocytes % 6.0 7.7 Neutrophils # 4.0 2.1 Neutrophils % 66.8 45.5 Nucleated Red Blood Cells # 0.0 0.0 Nucleated Red Blood Cells % 0.0 0.0 Platelet Count 364 # 311 Potassium Level 3.6 3.9 Red Blood Count 3.66 L 3.22 L Red Cell Distribution Width 13.6 13.1 Sodium Level 140 140 Total Bilirubin 0.3 0.1 L Total Protein 7.0 6.2 Troponin I < 0.012 < 0.012 White Blood Count 5.9 # 4.5 #L Magnesium Level 2.3 Phosphorus Level 4.6 Medications Current Medications Acetaminophen (Tylenol Tab) 650 mg Q4H PRN PO PAIN AND OR ELEVATED TEMP; Start 03/15/16 at 21:30 Acetaminophen/ Codeine Phosphate (Tylenol/Codeine Liquid) 12.5 ml Q4H PRN PO PAIN Last administered on 03/16/16 12:41; Admin Dose 12.5 ML; Start 03/15/16 at 21:30 Acetaminophen/ Hydrocodone Bitart (Lortab Liq) 15 ml Q3 PRN PO PAIN Last administered on 03/16/16 08:45; Admin Dose 15 ML; Start 03/15/16 at 21:30 Bisacodyl (Dulcolax Supp) 10 mg HS PRN [place] CONSTIPATION; Start 03/15/16 at 21:30 Ondansetron HCl (Zofran Inj) 4 mg Q4H PRN IV NAUSEA AND/OR VOMITING; Start at 21:30 Diphenhydramine HCl (Benadryl) 12.5 mg Q6H PRN IV ITCHING; Start 03/15/16 at 21 :30 Naloxone HCl (Narcan) 0.4 mg PRN PRN IV SEDATION; Start 03/15/16 at 22:00 Polyethylene Glycol (Miralax) 17 gm DAILY PO Last administered on 03/22/16 08: 54; Admin Dose 17 GM; Start 03/17/16 at 09:00 Morphine Sulfate (morphine) 10 mg Q4H PRN PO PAIN Last administered on 10:06; Admin Dose 10 MG; Start 03/16/16 at 20:30 Scopolamine (Transderm-Scop) 1 patch Q72H TRANSDERM Last administered on 08:22; Admin Dose 1 PATCH; Start 03/17/16 at 09:00 Morphine Sulfate (morphine) 2 mg Q4H PRN IV pain Last administered on 2/3/17at 10:55; Admin Dose 2 MG; Start 03/18/16 at 13:00 Magnesium Hydroxide (Milk Of Mag) 30 ml DAILY PO Last administered on 03/22/16 08:54; Admin Dose 30 ML; Start 03/19/16 at 15:00 Acetaminophen/ Hydrocodone Bitart ([place] (5/325)) 1 tab Q4H PRN PO MODERATE PAIN LEVEL 4-6 Last administered on 03/22/16 21:52; Admin Dose 1 TAB; Start 03/21 at 11:00 Acetaminophen/ Hydrocodone Bitart ([place] (5/325)) 2 tab Q4H PRN PO SEVERE PAIN LEVEL 7-10 Last administered on 03/23/16 08:26; Admin Dose 2 TAB; Start 03/21/16 at 11:00 Pantoprazole (Protonix Tab) 40 mg BID@06,18 PO Last administered on 03/23/16 06 :09; Admin Dose 40 MG; Start 03/22/16 at 18:00 Nitroglycerin (Nitroglycerin (Sl Tab) 0.4 Mg) 1 tab Q5M PRN SL ANGINA; Start at 12:30 Diphenoxylate HCl/ Atropine (Lomotil) 1 tab Q6H PRN PO DIARRHEA Last administered on 03/23/16 09:23; Admin Dose 1 TAB; Start 03/22/16 at 15:00 Assessment/Plan Additional Assessment/Plan Rehab- status post right total knee arthroplasty. Hold therapy today due to chest pain/pressure caridac- EKG and cardiac enzymes WNL Acute pain syndrome- continue current medications History of gastric lap band- f/b surgery. Improved symptoms RUDDY WYNN MD Mar 23, 2016 11:35
--- NOTE | 2016-03-23 15:35 | RADRPT ---
PROCEDURE: Right knee radiographs. CLINICAL INDICATION: Right knee pain. Postop. TECHNIQUE: Two views. Frontal and lateral. COMPARISON: No prior studies are available for comparison. FINDINGS: There is no fracture or dislocation. Anterior skin rony are noted. There are vascular calcifications consistent with atherosclerosis. There is a total right knee arthroplasty which appears satisfactory. There is no lytic or blastic lesion. There is no joint effusion. IMPRESSION: 1. Satisfactory postoperative appearance of the right knee. RPTAT: QQ .Librado Acosta MD, MD Date Time Electronically viewed and signed by .Librado Acosta MD, MD on 03/23/2016 15:34 .R/
[2016-03-23] MEDS: RIVAROXABAN 10 MG TABLET PO SCH (17:01)
[2016-03-23 20:00] VITALS: BP 104/54; PULSE 62; RESP 18
[2016-03-23] MEDS: ZOLPIDEM 5 MG TAB PO PRN (20:36)
--- NOTE | 2016-03-24 06:43 | PN ---
DATE: 03/23/2016 SUBJECTIVE: The patient is feeling much better. She has loose stools. C. diff was negative. Rece iving Imodium p.r.n. The patient tolerating diet well and denies any chest pain. Case discussed wi nursing staff as well. PHYSICAL EXAMINATION: VITAL SIGNS: Temperature 98.6, pulse , respirations 18, blood pressure 112/58, saturation 98%. GENERAL: The patient is in no acute distress. HEENT: Normocephalic, atraumatic. The patient is pale. CARDIOVASCULAR: S1 and S2, regular rate. LUNGS: Clear. ABDOMEN: Soft, nontender. EXTREMITIES: No clubbing, cyanosis, or edema. LABORATORY DATA: White count 4.5, hemoglobin 9.3, hematocrit 28, platelet count of 311, neutrophils 46%, lymphocytes 40%. Chemistry: Sodium is 140, potassium 3.9, chloride 103, bicarbonate 28, BUN is 15, creatinine 0.73, glucose 88. Troponin today was negative. Stool for C. diff was negative. X-ray of the knee shows satisfactory postoperative appearance of the right knee and chest x-ray did show normal chest radiograph. MEDICATIONS: Include the followin. Protonix 40 mg b.i.d. 2. Lomotil 1 tab q.6h. p.r.n. 3. Nitroglycerin p.r.n. 4. DuoNebs as directed q.2h. p.r.n. 5. [place] 1 tab q.4h. p.r.n. 6. Milk of magnesia daily. 7. Morphine sulfate 2 mg q.4h. p.r.n. 8. MiraLax 17 grams daily, also being held because of her diarrhea. 9. Scopolamine 1 patch q.72h. 10. Morphine 10 mg q.4h. p.r.n. 11. Xarelto 10 mg with dinner. 12. Narcan p.r.n. 13. Tylenol p.r.n. 14. Ambien p.r.n. 15. Tylenol with codeine liquid p.r.n. 16. Lortab p.r.n. 17. Dulcolax p.r.n. 18. Zofran p.r.n. 19. Benadryl p.r.n. ASSESSMENT AND PLAN: This is a 65-year-old female with history of hypothyroidism, Lap-Ban d, osteoarthritis, status post right knee arthroplasty who presents for rehabilitation. 1. Right hip arthroplasty. Continue physical therapy. Continue to use the special knee flexor. C ontinues to improve daily. Continue pain control. 2. Continue deep venous thrombosis prophylaxis with Xarelto 10 mg daily. 3. Chest pain. Troponins negative. EKG and chest x-ray were unremarkable. This was likely GI rel ated. 4. Dysphagia, resolved status post lap band decompression 5. Urinary tract infection, status post Rocephin. 6. Anemia. H and H is stable. No need for transfusion. 7. Continues to improve. 8. Diarrhea. In the meantime, continue to hold stool softeners and continue p.r.n. Lomotil. Again , patient is feeling much better. We will follow. Dictated By: TRACE SELLERS/ROGELIO Conf#: [id number] DID#: [id number]
[2016-03-24] MEDS: PANTOPRAZOLE (EC) 40 MG TAB PO SCH (06:45)
[2016-03-24] MEDS: morphine 2 MG INJ IV PRN ×2 (07:20→16:13)
--- NOTE | 2016-03-24 07:39 | CONS ---
Date/Time of Note Date/Time of Note DATE: 03/24/16 TIME: 07:38 Consult Date/Type/Reason Admit Date/Time Mar 15, 2016 at 19:27 Type of Consultation: Gen Surgical Ordering Provider: TRACE BATES MD Subjective Feeling well Objective pulm-cta sba ambulation Vital Signs Date Time Temp Pulse Resp B/P Pulse Ox O2 Delivery O2 Flow Rate FiO2 03/23/16 20:00 97.8 62 18 104/54 99 Room Air Intake and Output 03/23/16 03/23/16 03/24/16 15:00 23:00 07:00 Intake Total 240 ml 520 ml Balance 240 ml 520 ml Results/Medications Result Diagram: 03/23/16 0610 03/23/16 0610 Medications Current Medications Acetaminophen (Tylenol Tab) 650 mg Q4H PRN PO PAIN AND OR ELEVATED TEMP; Start 03/15/16 at 21:30 Acetaminophen/ Codeine Phosphate (Tylenol/Codeine Liquid) 12.5 ml Q4H PRN PO PAIN Last administered on 03/16/16 12:41; Admin Dose 12.5 ML; Start 03/15/16 at 21:30 Acetaminophen/ Hydrocodone Bitart (Lortab Liq) 15 ml Q3 PRN PO PAIN Last administered on 03/16/16 08:45; Admin Dose 15 ML; Start 03/15/16 at 21:30 Bisacodyl (Dulcolax Supp) 10 mg HS PRN [place] CONSTIPATION; Start 03/15/16 at 21:30 Ondansetron HCl (Zofran Inj) 4 mg Q4H PRN IV NAUSEA AND/OR VOMITING; Start at 21:30 Diphenhydramine HCl (Benadryl) 12.5 mg Q6H PRN IV ITCHING; Start 03/15/16 at 21 :30 Naloxone HCl (Narcan) 0.4 mg PRN PRN IV SEDATION; Start 03/15/16 at 22:00 Polyethylene Glycol (Miralax) 17 gm DAILY PO Last administered on 03/22/16 08: 54; Admin Dose 17 GM; Start 03/17/16 at 09:00 Morphine Sulfate (morphine) 10 mg Q4H PRN PO PAIN Last administered on 10:06; Admin Dose 10 MG; Start 03/16/16 at 20:30 Scopolamine (Transderm-Scop) 1 patch Q72H TRANSDERM Last administered on 08:22; Admin Dose 1 PATCH; Start 03/17/16 at 09:00 Morphine Sulfate (morphine) 2 mg Q4H PRN IV pain Last administered on 03/24/16 07:20; Admin Dose 2 MG; Start 03/18/16 at 13:00 Magnesium Hydroxide (Milk Of Mag) 30 ml DAILY PO Last administered on 03/22/16 08:54; Admin Dose 30 ML; Start 03/19/16 at 15:00 Acetaminophen/ Hydrocodone Bitart ([place] (5/325)) 1 tab Q4H PRN PO MODERATE PAIN LEVEL 4-6 Last administered on 03/22/16 21:52; Admin Dose 1 TAB; Start 03/21 at 11:00 Acetaminophen/ Hydrocodone Bitart ([place] (5/325)) 2 tab Q4H PRN PO SEVERE PAIN LEVEL 7-10 Last administered on 03/23/16 21:00; Admin Dose 2 TAB; Start 03/21/16 at 11:00 Pantoprazole (Protonix Tab) 40 mg BID@06,18 PO Last administered on 03/24/16 06 :45; Admin Dose 40 MG; Start 03/22/16 at 18:00 Nitroglycerin (Nitroglycerin (Sl Tab) 0.4 Mg) 1 tab Q5M PRN SL ANGINA; Start at 12:30 Diphenoxylate HCl/ Atropine (Lomotil) 1 tab Q6H PRN PO DIARRHEA Last administered on 03/23/16 09:23; Admin Dose 1 TAB; Start 03/22/16 at 15:00 Assessment/Plan Additional Assessment/Plan Rehab- status post right total knee arthroplasty. Doing well. Xray of knee WNL. Increase knee ROM as tolerated Acute pain syndrome- continue current medications History of gastric lap band- f/b surgery. Improved symptoms RUDDY WYNN MD Mar 24, 2016 07:39
[2016-03-24 08:00] VITALS: BP 110/65; PULSE 60; RESP 18
[2016-03-24] MEDS: MAGNESIUM HYDROXIDE 30ML CUP PO SCH (09:00)
[2016-03-24] MEDS: POLYETHYLENE GLYCOL 17 GM PACKET PO SCH (09:00)
[2016-03-24] MEDS: HYDROCODONE/APAP (5/325) TAB PO PRN ×2 (11:13→21:02)
--- NOTE | 2016-03-24 12:07 | CONS ---
Date/Time of Note Date/Time of Note DATE: 03/24/16 TIME: 12:05 Assessment/Plan Assessment/Plan Additional Assessment/Plan Additional Assessment/Plan Additional Assessment/Plan Impression: 1. dysphagia: totally resolved after removal of fluid from [place] 2. constipation: may contribute to pt's dysphagia 3. anemia: r/o gib 4. Right knee total arthroplasty. 5. History of hypothyroidism. TSH normal now Recommendations: 1. continue soft diet and advance as tolerated by patient 2. continue PPI once a day 3. continue qAC Zofran odt 4.d/c Lomotil Consultation Date/Type/Reason Admit Date/Time Mar 15, 2016 at 19:27 Type of Consultation: Gen Surgical Referring Provider: TRACE BATES MD 24 HR Interval Summary Free Text/Dictation constipation Exam/Review of Systems Vital Signs Vitals Vital Signs Date Time Temp Pulse Resp B/P Pulse Ox O2 Delivery O2 Flow Rate FiO2 03/24/16 08:00 98.2 60 18 110/65 98 Room Air Intake and Output 03/23/16 03/23/16 03/24/16 15:00 23:00 07:00 Intake Total 240 ml 520 ml Balance 240 ml 520 ml Exam Constitutional: alert, oriented, well developed Psych: nl mood/affect, no complaints Head: atraumatic, normocephalic Eyes: EOMI, PERRL, nl conjunctiva, nl lids, nl sclera ENMT: nl external ears & nose, nl lips & teeth, nl nasal mucosa & septum Neck: non-tender, supple Respiratory: clear to auscultation, normal air movement Cardiovascular: nl pulses, regular rate and rhythm Gastrointestinal: nl liver, spleen, non-tender, soft Musculoskeletal: nl extremities to inspection, nl gait and stance Extremities: normal pulses Neurological: [employer] intact, nl mental status, nl speech, nl strength Skin: nl turgor, No rash or lesions Lymph: nl lymph nodes Results Result Diagram: 03/23/1610 03/23/16 0610 Medications Medications Current Medications Acetaminophen (Tylenol Tab) 650 mg Q4H PRN PO PAIN AND OR ELEVATED TEMP; Start 03/15/16 at 21:30 Acetaminophen/ Codeine Phosphate (Tylenol/Codeine Liquid) 12.5 ml Q4H PRN PO PAIN Last administered on 03/16/16t 12:41; Admin Dose 12.5 ML; Start 03/15/16 at 21:30 Acetaminophen/ Hydrocodone Bitart (Lortab Liq) 15 ml Q3 PRN PO PAIN Last administered on 03/16/16 08:45; Admin Dose 15 ML; Start 03/15/16 at 21:30 Bisacodyl (Dulcolax Supp) 10 mg HS PRN [place] CONSTIPATION; Start 03/15/16 at 21:30 Ondansetron HCl (Zofran Inj) 4 mg Q4H PRN IV NAUSEA AND/OR VOMITING; Start at 21:30 Diphenhydramine HCl (Benadryl) 12.5 mg Q6H PRN IV ITCHING; Start 03/15/16 at 21 :30 Naloxone HCl (Narcan) 0.4 mg PRN PRN IV SEDATION; Start 03/15/16 at 22:00 Polyethylene Glycol (Miralax) 17 gm DAILY PO Last administered on 03/22/16 08: 54; Admin Dose 17 GM; Start 03/17/16 at 09:00 Morphine Sulfate (morphine) 10 mg Q4H PRN PO PAIN Last administered on 10:06; Admin Dose 10 MG; Start 03/16/16 at 20:30 Scopolamine (Transderm-Scop) 1 patch Q72H TRANSDERM Last administered on 08:22; Admin Dose 1 PATCH; Start 03/17/16 at 09:00 Morphine Sulfate (morphine) 2 mg Q4H PRN IV pain Last administered on 03/24/16 07:20; Admin Dose 2 MG; Start 03/18/16 at 13:00 Magnesium Hydroxide (Milk Of Mag) 30 ml DAILY PO Last administered on 03/22/16 08:54; Admin Dose 30 ML; Start 03/19/16 at 15:00 Acetaminophen/ Hydrocodone Bitart ([place] (5/325)) 1 tab Q4H PRN PO MODERATE PAIN LEVEL 4-6 Last administered on 03/22/16 21:52; Admin Dose 1 TAB; Start 03/21 at 11:00 Acetaminophen/ Hydrocodone Bitart ([place] (5/325)) 2 tab Q4H PRN PO SEVERE PAIN LEVEL 7-10 Last administered on 03/24/16 11:13; Admin Dose 2 TAB; Start 03/21/16 at 11:00 Pantoprazole (Protonix Tab) 40 mg BID@,18 PO Last administered on 03/24/16 06 :45; Admin Dose 40 MG; Start 03/22/16 at 18:00 Nitroglycerin (Nitroglycerin (Sl Tab) 0.4 Mg) 1 tab Q5M PRN SL ANGINA; Start at 12:30 Diphenoxylate HCl/ Atropine (Lomotil) 1 tab Q6H PRN PO DIARRHEA Last administered on 03/23/16 09:23; Admin Dose 1 TAB; Start 03/22/16 at 15:00 GLADIS PRICE MD Mar 24, 2016 12:07
--- NOTE | 2016-03-24 13:20 | PN ---
DATE: 03/24/2016 03/24/2016 SUBJECTIVE: The patient seen and tolerating diet well, diarrhea has subsided. Stool for C. diff came back negative. The patient continues to participate with physical therapy. PHYSICAL EXAMINATION: VITAL SIGNS: Temperature was 98.2, pulse 60, respiration 18, blood pressure 110/65, saturation 98% on room air. GENERAL: No acute distress. HEENT: Normocephalic, atraumatic. The patient is pale. CARDIOVASCULAR: Positive S1 and S2, regular rate. LUNGS: Clear. ABDOMEN: Soft, nontender. EXTREMITIES: No clubbing, cyanosis, or edema. LABORATORY DATA: No new labs today. Labs are stable, reviewed. Hemoglobin was 9.3. The patient h ad an x-ray of the knee which was done yesterday did show satisfactory postoperative appearance of t he right knee. MEDICATIONS: 1. Protonix 40 daily. 2. Lomotil p.r.n. 3. Nitroglycerin p.r.n. 4. DuoNebs p.r.n. 5. [place] p.r.n. 6. Milk of magnesia 30 mL daily. 7. Morphine p.r.n. 8. MiraLax 17 grams daily. 9. Scopolamine q.72h. 10. Xarelto 10 mg daily with dinner. 11. Narcan p.r.n. 12. Tylenol p.r.n. 13. Ambien p.r.n. 14. Lortab. 15. Dulcolax. 16. Zofran p.r.n. ASSESSMENT AND PLAN: This is a 65-year-old female with history of hypothyroidism, lap ban d, osteoarthritis, status post right knee arthroplasty, presents for rehabilitation. 1. Status post right hip arthroplasty. Continue physical therapy, occupational therapy. She does walk sometimes with the brace as well. Continue pain control. 2. Continue deep venous thrombosis prophylaxis with Xarelto. 3. Chest pain, resolved. EKG, chest x-ray and troponins all negative. 4. Dysphagia, resolved, status post lap band decompression. 5. Urinary tract infection, status post Rocephin. 6. Anemia. Hemoglobin and hematocrit is stable, would start her on iron supplements. 7. Diarrhea, resolved. May need to hold stool softeners. We will continue to follow. Dictated By: TRACE SELLERS/ROGELIO Conf#: [id number] DID#: [id number]
[2016-03-24] MEDS: RIVAROXABAN 10 MG TABLET PO SCH (17:43)
--- NOTE | 2016-03-24 18:14 | PN ---
Date/Time of Note Date/Time of Note DATE: 03/24/16 TIME: 18:13 Assessment/Plan Lines/Catheters IV Catheter Type (from Nrs): Peripheral IV Santacruz in Place (from Nrs): No Assessment/Plan Chief Complaint/Hosp Course 1. Dysphagia, nausea, and vomiting 2nd tight lap band s/p full emptying of the band 03/20. Resolved -diet as tolerated 2. Chest pressure with some shortness of breath probably noncardiac. However may be due to GI issues with release of the lap band causing some reflux and irritation. Improved. -Nutrition and lifestyle optimization -Cardiac workup in process 3. Right knee injury and arthritis s/p arthroplasty -rehab 4. Dilated esophagus 2nd above -as above 5. Anemia -monitor Thank you, Problems: Subjective 24 Hr Interval Summary Chest pressure improved. S/p Lap band adjustment and emptying of band 03/20. No n/v. Taking food. No f/c. No cough. No white/dizzy/visual or neuro changes. No dysuria. Exam/Review of Systems Vital Signs Vitals Vital Signs Date Time Temp Pulse Resp B/P Pulse Ox O2 Delivery O2 Flow Rate FiO2 03/24/16 08:00 98.2 60 18 110/65 98 Room Air Intake and Output 03/23/16 03/23/16 03/24/16 15:00 23:00 07:00 Intake Total 240 ml 520 ml Balance 240 ml 520 ml Exam Free Text/Dictation Constitutional: alert, oriented, No distress Psych: nl mood/affect, No anxiety, No confusion Head: atraumatic, normocephalic Eyes: EOMI, PERRL, nl conjunctiva, No icteric ENMT: mucosa pink and moist, nl external ears & nose Neck: non-tender, supple Respiratory: normal air movement, No congested cough, No labored breathing Cardiovascular: regular rate and rhythm, No edema Gastrointestinal: non-tender, soft, No distended, No rebound or guarding Musculoskeletal: joint tenderness (Right knee), No nl extremities to inspection (RLE brace), No nl gait and stance Extremities: No calf tenderness, No cyanosis Neurological: nl mental status, nl speech, nl strength Skin: nl turgor, No diaphoresis, No rash or lesions Lymph: nl lymph nodes Results Result Diagram: 03/23/1610 03/23/16609 GERARDO DON MD Mar 24, 2016 18:14
[2016-03-24 19:52] VITALS: BP 122/65; PULSE 60; RESP 17
[2016-03-24] MEDS: ZOLPIDEM 5 MG TAB PO PRN (21:02)
[2016-03-25] MEDS: HYDROCODONE/APAP (5/325) TAB PO PRN ×3 (02:36→21:05)
[2016-03-25 08:00] VITALS: BP 140/67; PULSE 56; RESP 18
[2016-03-25] MEDS: PANTOPRAZOLE (EC) 40 MG TAB PO SCH (08:01)
[2016-03-25] MEDS: MAGNESIUM HYDROXIDE 30ML CUP PO SCH (08:05)
[2016-03-25] MEDS: FERROUS SULFATE (EC) 325 MG TAB PO SCH (08:06)
[2016-03-25] MEDS: morphine 2 MG INJ IV PRN ×2 (11:24→16:32)
--- NOTE | 2016-03-25 14:07 | PN ---
DATE: 03/25/2016 HISTORY: The patient is seen. The patient is concerned about her ability to flex the right knee. She says she is doing about 45 to 55 degree angle, and she is concerned that she is not progressing as she is supposed to. Overall, the patient is doing well. Appetite is good. Denies any chest balaji n or problems with food intake. Case discussed with nursing staff. PHYSICAL EXAMINATION: VITAL SIGNS: Afebrile, temperature 97.8, pulse 56, respirations 18, blood pressure 140/67, saturati on is 100%. GENERAL: No acute distress. HEENT: Normocephalic, atraumatic. The patient is pale. CARDIOVASCULAR: S1, S2 regular. LUNGS: Clear. ABDOMEN: Soft, nontender. EXTREMITIES: No clubbing, cyanosis, or edema. Right knee slightly swollen, which is normal, especi ally status post surgery. The patient moving all extremities. LABORATORY DATA: No new labs today. Labs dated 03/23/2016 were all reviewed. MEDICATIONS: Include the followin. Ferrous sulfate 325 daily. 2. Protonix 40 mg daily. 3. Lomotil p.r.n. 4. Nitroglycerin p.r.n. 5. DuoNeb q.2h. p.r.n. 6. [place] p.r.n. 7. Milk of magnesia p.r.n. 8. Morphine p.r.n. 9. Scopolamine transdermal q.72h, which we can probably discontinue morphine p.r.n. 10. Xarelto 10 mg with dinner. 11. Narcan p.r.n. 12. Tylenol p.r.n. 13. Ambien p.r.n. 14. Lortab p.r.n. 15. Dulcolax p.r.n. 16. Zofran p.r.n. ASSESSMENT AND PLAN: This is a 65-year-old female with history of hypothyroidism, lap ban d, osteoarthritis, status post right knee arthroplasty, presents for rehabilitation. 1. Status post right knee arthroplasty. Continue physical therapy, occupational therapy, pain cont rol. 2. Continue deep venous thrombosis prophylaxis with Xarelto. 3. Chest pain, resolved. This was likely GI related 4. Status post lap band causing dysphagia, status post decompression tolerating diet well. 5. Urinary tract infection, status post Rocephin. 6. Anemia, on iron supplements. 7. Continue with physical therapy, occupational therapy. We will follow. Dictated By: TRACE SELLERS/ROGELIO Conf#: [id number] DID#: [id number]
--- NOTE | 2016-03-25 16:28 | PN ---
Date/Time of Note Date/Time of Note DATE: 03/25/16 TIME: 16:27 Assessment/Plan Lines/Catheters IV Catheter Type (from Nrs): Peripheral IV Santacruz in Place (from Nrs): No Assessment/Plan Chief Complaint/Hosp Course 1. Dysphagia, nausea, and vomiting 2nd tight lap band s/p full emptying of the band 03/20. Resolved -diet as tolerated 2. Chest pressure with some shortness of breath probably noncardiac. However may be due to GI issues with release of the lap band causing some reflux and irritation. Improved. -Nutrition and lifestyle optimization -Cardiac workup in process 3. Right knee injury and arthritis s/p arthroplasty -rehab 4. Dilated esophagus 2nd above -as above 5. Anemia -monitor Thank you, Problems: Subjective 24 Hr Interval Summary Chest pressure resolved. No n/v. Taking food. No f/c. No cough. No white/dizzy /visual or neuro changes. No dysuria. Exam/Review of Systems Vital Signs Vitals Vital Signs Date Time Temp Pulse Resp B/P Pulse Ox O2 Delivery O2 Flow Rate FiO2 03/25/16 08:00 97.8 56 18 140/67 100 Room Air Intake and Output 03/24/16 03/24/16 03/25/16 15:00 23:00 07:00 Intake Total 720 ml 300 ml Balance 720 ml 300 ml Exam Free Text/Dictation Constitutional: alert, oriented, No distress Psych: nl mood/affect, No anxiety, No confusion Head: atraumatic, normocephalic Eyes: EOMI, PERRL, nl conjunctiva, No icteric ENMT: mucosa pink and moist, nl external ears & nose Neck: non-tender, supple Respiratory: normal air movement, No congested cough, No labored breathing Cardiovascular: regular rate and rhythm, No edema Gastrointestinal: non-tender, soft, No distended, No rebound or guarding Musculoskeletal: joint tenderness (Right knee), No nl extremities to inspection (RLE brace), No nl gait and stance Extremities: No calf tenderness, No cyanosis Neurological: nl mental status, nl speech, nl strength Skin: nl turgor, No diaphoresis, No rash or lesions Lymph: nl lymph nodes Results Result Diagram: 03/23/16 0610 03/23/16 0610 GERARDO DON MD Mar 25, 2016 16:28
[2016-03-25] MEDS: RIVAROXABAN 10 MG TABLET PO SCH (17:33)
[2016-03-25 20:00] VITALS: BP 112/58; RESP 19
[2016-03-25] MEDS: ZOLPIDEM 5 MG TAB PO PRN (21:05)
[2016-03-26 07:30] VITALS: BP 127/62; RESP 18
[2016-03-26] MEDS: PANTOPRAZOLE (EC) 40 MG TAB PO SCH (07:40)
[2016-03-26] MEDS: morphine 2 MG INJ IV PRN (07:42)
[2016-03-26] MEDS: MAGNESIUM HYDROXIDE 30ML CUP PO SCH (09:04)
[2016-03-26] MEDS: FERROUS SULFATE (EC) 325 MG TAB PO SCH (09:04)
[2016-03-26] MEDS ORDERED: HYDROCODONE/APAP (7.5/325) TAB PO PRN (11:30)
[2016-03-26] MEDS: HYDROCODONE/APAP (7.5/325) TAB PO PRN (13:00)
[2016-03-26] MEDS ORDERED: morphine 2 MG INJ IV PRN (13:00)
--- NOTE | 2016-03-26 13:09 | CONS ---
Date/Time of Note Date/Time of Note DATE: 03/26/16 TIME: 13:08 Consult Date/Type/Reason Admit Date/Time Mar 15, 2016 at 19:27 Type of Consultation: Gen Surgical Ordering Provider: TRACE BATES MD Subjective Overall feeling better Objective Vital Signs Date Time Temp Pulse Resp B/P Pulse Ox O2 Delivery O2 Flow Rate FiO2 03/26/16 07:30 99.0 66 18 127/62 98 03/25/16 08:00 Room Air Intake and Output 03/25/16 03/25/16 03/26/16 15:00 23:00 07:00 Intake Total 1800 ml Balance 1800 ml INTERDISCIPLINARY TEAM CONFERENCE BOWEL- Cont BLADDER-Cont SKIN- intact, rony in place OT- DRESSING-s BATHING-s TOILETING-s PT- BED MOBILITY-s TRANSFERS-s AMBULATION-s 200 A/P- Interdisciplinary team conference held today. Please see interdisciplinary sheet. Working toward d.c. on 03/30 with post discharge follow up of physical therapy, occupational therapy. Results/Medications Result Diagram: 03/23/16 0610 03/23/16 0610 Medications Current Medications Acetaminophen (Tylenol Tab) 650 mg Q4H PRN PO PAIN AND OR ELEVATED TEMP; Start 03/15/16 at 21:30 Bisacodyl (Dulcolax Supp) 10 mg HS PRN [place] CONSTIPATION; Start 03/15/16 at 21:30 Ondansetron HCl (Zofran Inj) 4 mg Q4H PRN IV NAUSEA AND/OR VOMITING; Start at 21:30 Diphenhydramine HCl (Benadryl) 12.5 mg Q6H PRN IV ITCHING; Start 03/15/16 at 21 :30 Naloxone HCl (Narcan) 0.4 mg PRN PRN IV SEDATION; Start 03/15/16 at 22:00 Morphine Sulfate (morphine) 10 mg Q4H PRN PO PAIN Last administered on 10:06; Admin Dose 10 MG; Start 03/16/16 at 20:30 Magnesium Hydroxide (Milk Of Mag) 30 ml DAILY PO Last administered on 03/26/16 09:04; Admin Dose 30 ML; Start 03/19/16 at 15:00 Nitroglycerin (Nitroglycerin (Sl Tab) 0.4 Mg) 1 tab Q5M PRN SL ANGINA; Start at 12:30 Diphenoxylate HCl/ Atropine (Lomotil) 1 tab Q6H PRN PO DIARRHEA Last administered on 03/23/16 09:23; Admin Dose 1 TAB; Start 03/22/16 at 15:00 Ferrous Sulfate (Ferrous Sulfate (Ec)) 325 mg DAILY PO Last administered on 03/26 09:04; Admin Dose 325 MG; Start 03/25/16 at 09:00 Morphine Sulfate (morphine) 1 mg Q4H PRN IV pain; Start 03/26/16 at 13:00 Acetaminophen/ Hydrocodone Bitart ([place] (7.5-325)) 1 tab Q4H PRN PO PAIN LEVEL 4-6; Start 03/26/16 at 11:30 Acetaminophen/ Hydrocodone Bitart ([place] (7.5-325)) 2 tab Q4H PRN PO PAIN LEVEL 7-10 Last administered on 03/26/16 13:00; Admin Dose 2 TAB; Start 03/26/16 at 11:30 RUDDY WYNN MD Mar 26, 2016 13:09
[2016-03-26] MEDS: RIVAROXABAN 10 MG TABLET PO SCH (17:42)
--- NOTE | 2016-03-26 18:18 | PN ---
DATE: 03/26/2016 Unfortunately, the patient continues to have difficulty flexing her right knee, and now it has been partly about 2 weeks surgery. An x-ray of the knee was unremarkable back on 03/23. Otherwis e, patient with good appetite. PHYSICAL EXAMINATION: VITAL SIGNS: Temperature is 99, pulse 66, respirations 18, blood pressure 127/62, saturation 98%. GENERAL: Patient is in no acute distress. HEENT: Normocephalic, atraumatic. The patient is pale. CARDIOVASCULAR: S1, S2. Regular rate. LUNGS: Clear. ABDOMEN: Soft, nontender. EXTREMITIES: Right knee, rony were removed, and now there are Steri-Strips throughout. Slight w armth at the knee area, but no significant swelling. The patient with significant pain upon slight flexion of the knee. The patient may be very intolerant to pain. Case discussed with staff. LABORATORY DATA: No new labs today. MEDICATIONS: Reviewed and include: 1. Morphine p.r.n. 2. [place] p.r.n. 3. Ferrous sulfate 325 daily. 4. Protonix 40 mg daily. 5. Lomotil p.r.n. 6. Nitroglycerin p.r.n. 7. Albuterol and Atrovent p.r.n. 8. Milk of Magnesia daily. 9. Xarelto 10 mg with dinner. 10. Narcan p.r.n. 11. Tylenol p.r.n. 12. Ambien p.r.n. 13. Dulcolax p.r.n. 14. Zofran p.r.n. 15. Benadryl p.r.n. ASSESSMENT AND PLAN: This is a 65-year-old female with history of hypothyroidism, lap ban d, osteoarthritis, status post right knee arthroplasty, presents for rehabilitation. 1. Status post right knee arthroplasty. Pain is still persistent with significant limitation in mo vement. Will consult orthopedic doctor as patient's original orthopedic doctor does not come here. His name is Dr. Alas. In the meantime, will continue with physical therapy, occupational therapy, and pain control. I do not see any evidence of an infectious process. Will continue to monitor. Follow up white count. Follow up for any evidence of fevers. 2. There is no discharge noted from knee site. 3. Continue deep venous thrombosis prophylaxis with Xarelto. 4. Dysphagia, status post lap band decompression, doing well, tolerating diet well. 5. Status post treatment for urinary tract infection. 6. Anemia. Continue iron supplements. Follow up hemoglobin and hematocrit in the a.m. 7. Continue Protonix for GI prophylaxis. 8. Plan overall is to consult orthopedics. Continue with pain control, physical therapy, we will lexa cummings. Dictated By: TRACE SELLERS/ROGELIO Conf#: [id number] DID#: [id number]
[2016-03-26] MEDS: ZOLPIDEM 5 MG TAB PO PRN (20:22)
[2016-03-26 20:45] VITALS: BP 133/62; RESP 20
--- NOTE | 2016-03-26 22:36 | PN ---
Date/Time of Note Date/Time of Note DATE: 03/26/16 TIME: 22:35 Assessment/Plan Lines/Catheters IV Catheter Type (from Nrs): Saline Lock Santacruz in Place (from Nrsg): No Assessment/Plan Chief Complaint/Hosp Course 1. Dysphagia, nausea, and vomiting 2nd tight lap band s/p full emptying of the band 03/20. Resolved -diet as tolerated 2. Chest pressure with some shortness of breath probably noncardiac. However may be due to GI issues with release of the lap band causing some reflux and irritation. Improved. -Nutrition and lifestyle optimization -Cardiac workup in process 3. Right knee injury and arthritis s/p arthroplasty -rehab 4. Dilated esophagus 2nd above -as above 5. Anemia -monitor Thank you, Problems: Subjective 24 Hr Interval Summary During PT, she felt band may have moved but doing well. No n/v. Tolerating food. No f/c. No cough. No white/dizzy/visual or neuro changes. No dysuria. Exam/Review of Systems Vital Signs Vitals Vital Signs Date Time Temp Pulse Resp B/P Pulse Ox O2 Delivery O2 Flow Rate FiO2 03/26/16 20:45 98.4 60 20 133/62 91 03/25/16 08:00 Room Air Intake and Output 03/25/16 03/25/16 03/26/16 15:00 23:00 07:00 Intake Total 1800 ml Balance 1800 ml Exam Free Text/Dictation Constitutional: alert, oriented, No distress Psych: nl mood/affect, No anxiety, No confusion Head: atraumatic, normocephalic Eyes: EOMI, PERRL, nl conjunctiva, No icteric ENMT: mucosa pink and moist, nl external ears & nose Neck: non-tender, supple Respiratory: normal air movement, No congested cough, No labored breathing Cardiovascular: regular rate and rhythm, No edema Gastrointestinal: non-tender, soft, No distended, No rebound or guarding Musculoskeletal: joint tenderness (Right knee), No nl extremities to inspection (RLE brace), No nl gait and stance Extremities: No calf tenderness, No cyanosis Neurological: nl mental status, nl speech, nl strength Skin: nl turgor, No diaphoresis, No rash or lesions Lymph: nl lymph nodes Results Result Diagram: 03/23/1610 03/23/16609 GERARDO DON MD Mar 26, 2016 22:36
[2016-03-27 07:25] LABS: BASOPHILS % 0.7 % (0.0-2.0); EOSINOPHILS # 0.3 10^3/ul (0.0-0.5); EOSINOPHILS % 5.9 % (0.0-7.0); HEMATOCRIT 29.7 % (37.0-47.0); HEMOGLOBIN 9.9 g/dl (12.0-16.0); LYMPHOCYTES # 1.8 10^3/ul (0.8-2.9); LYMPHOCYTES % 40.1 % (15.0-51.0); MEAN CORPUSCULAR HEMOGLOBIN 28.2 pg (29.0-33.0); MEAN CORPUSCULAR HGB CONC 33.4 g/dl (32.0-37.0); MEAN CORPUSCULAR VOLUME 84.6 fl (82.0-101.0); MEAN PLATELET VOLUME 7.6 fl (7.4-10.4); MONOCYTE # 0.3 10^3/ul (0.3-0.9); MONOCYTES % 6.8 % (0.0-11.0); NEUTROPHIL # 2.1 10^3/ul (1.6-7.5); NEUTROPHILS % 46.5 % (39.0-77.0); PLATELET COUNT 323 10^3/UL (140-440); RED BLOOD COUNT 3.51 10^6/ul (4.20-5.40); RED CELL DISTRIBUTION WIDTH 13.9 % (11.5-14.5); UNCORRECTED WBC 4.6 10^3/ul (4.8-10.8); WHITE BLOOD COUNT 4.6 10^3/ul (4.8-10.8)
[2016-03-27 07:40] LABS: CONDITION 1
[2016-03-27 07:45] VITALS: BP 119/56; RESP 18
[2016-03-27] MEDS: PANTOPRAZOLE (EC) 40 MG TAB PO SCH (07:48)
[2016-03-27] MEDS: FERROUS SULFATE (EC) 325 MG TAB PO SCH (07:48)
[2016-03-27 07:49] LABS: ALBUMIN 3.3 g/dl (3.3-4.9)
[2016-03-27] MEDS: MAGNESIUM HYDROXIDE 30ML CUP PO SCH (07:49)
[2016-03-27 07:50] LABS: POTASSIUM 4.2 mmol/L (3.5-5.1)
[2016-03-27 07:52] LABS: BILIRUBIN,INDIRECT 0.1 mg/dl (0-1.1); BILIRUBIN,TOTAL 0.1 mg/dl (0.2-1.3); CREATININE 0.66 mg/dl (0.44-1.00)
[2016-03-27 07:53] LABS: ALBUMIN/GLOBULIN RATIO 0.94; CALCIUM 8.4 mg/dl (8.4-10.2); TOTAL PROTEIN 6.8 g/dl (6.1-8.1)
[2016-03-27 07:59] LABS: MAGNESIUM 2.1 mg/dl (1.7-2.5)
[2016-03-27] MEDS: morphine 4 MG/ML VIAL IV PRN (10:51)
--- NOTE | 2016-03-27 11:45 | CONS ---
Date/Time of Note Date/Time of Note DATE: 03/27/16 TIME: 11:44 Consult Date/Type/Reason Admit Date/Time Mar 15, 2016 at 19:27 Type of Consultation: Gen Surgical Ordering Provider: TRACE BATES MD Subjective Pain primarily with ROM Objective knee ROM to 62 degrees today Vital Signs Date Time Temp Pulse Resp B/P Pulse Ox O2 Delivery O2 Flow Rate FiO2 03/27/16 07:45 98.5 62 18 119/56 98 03/25/16 08:00 Room Air Intake and Output 03/26/16 03/26/16 03/27/16 15:00 23:00 07:00 Intake Total 360 ml Balance 360 ml Results/Medications Result Diagram: 03/27/16 0553 03/27/16 0553 Results 24 hrs Laboratory Tests Test 03/27/16 05:53 Alanine Aminotransferase (ALT/SGPT) 20 Albumin 3.3 Albumin/Globulin Ratio 0.94 Alkaline Phosphatase 51 Anion Gap 17 H Aspartate Amino Transf (AST/SGOT) 21 Basophils # 0.0 Basophils % 0.7 Blood Morphology Comment Blood Urea Nitrogen 17 Calcium Level 8.4 Carbon Dioxide Level 28 Chloride Level 100 Creatinine 0.66 Direct Bilirubin 0.00 Eosinophils # 0.3 Eosinophils % 5.9 Globulin 3.50 H Glucose Level 89 Hematocrit 29.7 L Hemoglobin 9.9 L Indirect Bilirubin 0.1 Lymphocytes # 1.8 Lymphocytes % 40.1 Magnesium Level 2.1 Mean Corpuscular Hemoglobin 28.2 L Mean Corpuscular Hemoglobin Concent 33.4 Mean Corpuscular Volume 84.6 Mean Platelet Volume 7.6 Monocytes # 0.3 Monocytes % 6.8 Neutrophils # 2.1 Neutrophils % 46.5 Nucleated Red Blood Cells # 0.0 Nucleated Red Blood Cells % 0.0 Phosphorus Level 5.0 H Platelet Count 323 Potassium Level 4.2 Red Blood Count 3.51 L Red Cell Distribution Width 13.9 Sodium Level 141 Total Bilirubin 0.1 L Total Protein 6.8 White Blood Count 4.6 L Medications Current Medications Acetaminophen (Tylenol Tab) 650 mg Q4H PRN PO PAIN AND OR ELEVATED TEMP; Start 03/15/16 at 21:30 Bisacodyl (Dulcolax Supp) 10 mg HS PRN [place] CONSTIPATION; Start 03/15/16 at 21:30 Ondansetron HCl (Zofran Inj) 4 mg Q4H PRN IV NAUSEA AND/OR VOMITING; Start at 21:30 Diphenhydramine HCl (Benadryl) 12.5 mg Q6H PRN IV ITCHING; Start 03/15/16 at 21 :30 Naloxone HCl (Narcan) 0.4 mg PRN PRN IV SEDATION; Start 03/15/16 at 22:00 Morphine Sulfate (morphine) 10 mg Q4H PRN PO PAIN Last administered on 10:06; Admin Dose 10 MG; Start 03/16/16 at 20:30 Magnesium Hydroxide (Milk Of Mag) 30 ml DAILY PO Last administered on 03/26/16 09:04; Admin Dose 30 ML; Start 03/19/16 at 15:00 Nitroglycerin (Nitroglycerin (Sl Tab) 0.4 Mg) 1 tab Q5M PRN SL ANGINA; Start at 12:30 Diphenoxylate HCl/ Atropine (Lomotil) 1 tab Q6H PRN PO DIARRHEA Last administered on 03/23/16 09:23; Admin Dose 1 TAB; Start 03/22/16 at 15:00 Ferrous Sulfate (Ferrous Sulfate (Ec)) 325 mg DAILY PO Last administered on 03/27 07:48; Admin Dose 325 MG; Start 03/25/16 at 09:00 Acetaminophen/ Hydrocodone Bitart ([place] (7.5-325)) 1 tab Q4H PRN PO PAIN LEVEL 4-6; Start 03/26/16 at 11:30 Acetaminophen/ Hydrocodone Bitart ([place] (7.5-325)) 2 tab Q4H PRN PO PAIN LEVEL 7-10 Last administered on 03/26/16 13:00; Admin Dose 2 TAB; Start 03/26/16 at 11:30 Morphine Sulfate (morphine) 4 mg Q4H PRN IV pain Last administered on 03/27/16 10:51; Admin Dose 4 MG; Start 03/26/16 at 17:00 Assessment/Plan Additional Assessment/Plan Rehab- status post right total knee arthroplasty. Continue rehab activities, and Increase knee ROM as tolerated Acute pain syndrome- continue current medications History of gastric lap band- f/b surgery. Improved symptoms RUDDY WYNN MD Mar 27, 2016 11:45
[2016-03-27] MEDS: HYDROCODONE/APAP (7.5/325) TAB PO PRN (13:04)
[2016-03-27] MEDS ORDERED: BACLOFEN 10 MG TAB PO ONE (14:00)
--- NOTE | 2016-03-27 16:57 | PN ---
DATE: 03/27/2016 SUBJECTIVE: Patient seen. Apparently with a special knee machine she was able to flex her knee up to 65 degrees, but the patient does experience severe pain. I briefly spoke with an orthopedic y sician who stated that he does not feel comfortable seeing the patient , especially was operated by another surgeon, which is Dr. Alsa. I called Dr. Alas's office, phone number [phone], and Sonya Alas is currently in surgery. He will be available tomorrow at his [place] office, phone numb er [phone]. Basically, the patient does appear to be comfortable right now. The best advice i s the patient is being discharged this week, so to make an appointment as soon as possible with Dr. Alas and further recommendation will be made. It is possible the patient is just very sensitive t o pain. Other possibility is possible problem with hardware, etc. Again, the patient overall remai kade stable. She was advised to follow up with Dr. Alas, and she is okay with this plan. I told he r about all my concerns. She understands. PHYSICAL EXAMINATION: VITAL SIGNS: Temperature 98.5, pulse 62, respirations 18, blood pressure 119/56, saturation 98%. GENERAL: No acute distress. HEENT: Normocephalic, atraumatic. The patient is pale. CARDIOVASCULAR: S1 and S2, regular rate. LUNGS: Clear. ABDOMEN: Soft, nontender. EXTREMITIES: No clubbing, cyanosis, or edema. Right knee in a special knee area support brace. Sh e has ice also being applied at times. LABORATORY DATA: White count is 4.6, hemoglobin 9.9, hematocrit 30, platelet count is 223 with norm al differential. Chemistry: Sodium is 141, potassium 4.2, chloride 100, bicarbonate 28, BUN is 17, creatinine 0.66 and glucose of 89. The patient's stool for C. diff on 03/22/2016 was negative. MEDICATIONS: 1. Include the following: Baclofen 10 mg t.i.d. 2. Morphine 4 mg IV q.4h. p.r.n. 3. [place] 7.5/325 q.4h. p.r.n. 4. Ferrous sulfate 3 25 mg daily. 5. Protonix 40 mg daily. 6. Lomotil p.r.n. 7. Nitroglycerin p.r.n. 8. DuoNeb as directed. 9. Milk of magnesia p.r.n. 8. Morphine p.r.n. 9. Xarelto 10 mg daily. 10. Narcan p.r.n. 11. Tylenol p.r.n. 12. Ambien p.r.n. 13. Dulcolax p.r.n. 14. Zofran p.r.n. 15. Benadryl p.r.n. ASSESSMENT AND PLAN: This is a 65-year-old female with history of hypothyroidism, lap ban d, osteoarthritis, status post right knee arthroplasty, presents for rehabilitation. 1. Status post right knee arthroplasty and actually improved range of motion today. Continue pain medication, ice and supportive care, physical therapy, occupational therapy and a followup with Dr. Alas as soon as possible. I told her to already call and make an appointment as he is aware of the surgery performed. 3. Continue deep venous thrombosis prophylaxis with Xarelto. 4. Dysphagia, resolved status post lap band decompression. 5. Status post urinary tract infection. 6. Anemia. Continue iron supplement. 7. Constipation. Stool softeners as needed. 8. Continue with pain control and supportive care. We will follow. Dictated By: TRACE SELLERS/ROGELIO Conf#: [id number] DID#: [id number]
[2016-03-27] MEDS: RIVAROXABAN 10 MG TABLET PO SCH (17:39)
--- NOTE | 2016-03-27 19:16 | PN ---
Date/Time of Note Date/Time of Note DATE: 03/27/16 TIME: 19:15 Assessment/Plan Lines/Catheters IV Catheter Type (from Nrs): Saline Lock Santacruz in Place (from Nrs): No Assessment/Plan Chief Complaint/Hosp Course 1. Dysphagia, nausea, and vomiting 2nd tight lap band s/p full emptying of the band 03/20. Resolved -diet as tolerated 2. Chest pressure with some shortness of breath probably noncardiac. However may be due to GI issues with release of the lap band causing some reflux and irritation. Improved. -Nutrition and lifestyle optimization -Cardiac workup in process 3. Right knee injury and arthritis s/p arthroplasty -rehab 4. Dilated esophagus 2nd above -as above 5. Anemia -monitor Thank you, Problems: Subjective 24 Hr Interval Summary No n/v. Tolerating food. No f/c. No cough. No white/dizzy/visual or neuro changes. No dysuria. Exam/Review of Systems Vital Signs Vitals Vital Signs Date Time Temp Pulse Resp B/P Pulse Ox O2 Delivery O2 Flow Rate FiO2 03/27/16 07:45 98.5 62 18 119/56 98 03/25/16 08:00 Room Air Intake and Output 03/26/16 03/26/16 03/27/16 15:00 23:00 07:00 Intake Total 360 ml Balance 360 ml Exam Free Text/Dictation Constitutional: alert, oriented, No distress Psych: nl mood/affect, No anxiety, No confusion Head: atraumatic, normocephalic Eyes: EOMI, PERRL, nl conjunctiva, No icteric ENMT: mucosa pink and moist, nl external ears & nose Neck: non-tender, supple Respiratory: normal air movement, No congested cough, No labored breathing Cardiovascular: regular rate and rhythm, No edema Gastrointestinal: non-tender, soft, No distended, No rebound or guarding Musculoskeletal: joint tenderness (Right knee), No nl extremities to inspection (RLE brace), No nl gait and stance Extremities: No calf tenderness, No cyanosis Neurological: nl mental status, nl speech, nl strength Skin: nl turgor, No diaphoresis, No rash or lesions Lymph: nl lymph nodes Results Result Diagram: 03/27/16 0553 03/27/16 0553 GERARDO DON MD Mar 27, 2016 19:16
[2016-03-27] MEDS: BACLOFEN 10 MG TAB PO SCH (20:31)
[2016-03-27] MEDS: ZOLPIDEM 5 MG TAB PO PRN (20:31)
[2016-03-27 20:32] VITALS: BP 122/60; RESP 18
[2016-03-28] MEDS: morphine 4 MG/ML VIAL IV PRN (06:53)
[2016-03-28 08:02] VITALS: BP 124/60; RESP 18
[2016-03-28] MEDS: PANTOPRAZOLE (EC) 40 MG TAB PO SCH (08:12)
[2016-03-28] MEDS: BACLOFEN 10 MG TAB PO SCH ×3 (08:12→21:00)
[2016-03-28] MEDS: FERROUS SULFATE (EC) 325 MG TAB PO SCH (09:00)
[2016-03-28] MEDS: MAGNESIUM HYDROXIDE 30ML CUP PO SCH (09:00)
--- NOTE | 2016-03-28 10:59 | CONS ---
Date/Time of Note Date/Time of Note DATE: 03/28/16 TIME: 10:57 Consult Date/Type/Reason Admit Date/Time Mar 15, 2016 at 19:27 Type of Consultation: Gen Surgical Ordering Provider: TRACE BATES MD Subjective Patient reports much better with baclofen Objective pulm- cta sba ambulation cpm up to 70 degrees; prom to 60 degrees Vital Signs Date Time Temp Pulse Resp B/P Pulse Ox O2 Delivery O2 Flow Rate FiO2 03/28/16 08:02 97.9 64 18 124/60 97 03/25/16 08:00 Room Air Intake and Output 03/27/16 03/27/16 03/28/16 15:00 23:00 07:00 Intake Total 720 ml 360 ml 950 ml Balance 720 ml 360 ml 950 ml Results/Medications Result Diagram: 03/27/16 0553 03/27/16 0553 Medications Current Medications Acetaminophen (Tylenol Tab) 650 mg Q4H PRN PO PAIN AND OR ELEVATED TEMP; Start 03/15/16 at 21:30 Bisacodyl (Dulcolax Supp) 10 mg HS PRN [place] CONSTIPATION; Start 03/15/16 at 21:30 Ondansetron HCl (Zofran Inj) 4 mg Q4H PRN IV NAUSEA AND/OR VOMITING; Start at 21:30 Diphenhydramine HCl (Benadryl) 12.5 mg Q6H PRN IV ITCHING; Start 03/15/16 at 21 :30 Naloxone HCl (Narcan) 0.4 mg PRN PRN IV SEDATION; Start 03/15/16 at 22:00 Morphine Sulfate (morphine) 10 mg Q4H PRN PO PAIN Last administered on 10:06; Admin Dose 10 MG; Start 03/16/16 at 20:30 Magnesium Hydroxide (Milk Of Mag) 30 ml DAILY PO Last administered on 03/28/16 09:00; Admin Dose 30 ML; Start 03/19/16 at 15:00 Nitroglycerin (Nitroglycerin (Sl Tab) 0.4 Mg) 1 tab Q5M PRN SL ANGINA; Start at 12:30 Diphenoxylate HCl/ Atropine (Lomotil) 1 tab Q6H PRN PO DIARRHEA Last administered on 03/23/16 09:23; Admin Dose 1 TAB; Start 03/22/16 at 15:00 Ferrous Sulfate (Ferrous Sulfate (Ec)) 325 mg DAILY PO Last administered on 03/28 09:00; Admin Dose 325 MG; Start 03/25/16 at 09:00 Acetaminophen/ Hydrocodone Bitart ([place] (7.5-325)) 1 tab Q4H PRN PO PAIN LEVEL 4-6; Start 03/26/16 at 11:30 Acetaminophen/ Hydrocodone Bitart ([place] (7.5-325)) 2 tab Q4H PRN PO PAIN LEVEL 7-10 Last administered on 03/27/16 13:04; Admin Dose 2 TAB; Start 03/26/16 at 11:30 Morphine Sulfate (morphine) 4 mg Q4H PRN IV pain Last administered on 03/28/16 06:53; Admin Dose 4 MG; Start 03/26/16 at 17:00 Baclofen (Lioresal) 10 mg TID PO Last administered on 03/28/16 08:12; Admin Dose 10 MG; Start 03/27/16 at 21:00 Assessment/Plan Additional Assessment/Plan Rehab- status post right total knee arthroplasty. Continue to increase knee ROM as tolerated; excellent functional gains Acute pain syndrome- continue current medications History of gastric lap band- f/b surgery. Improved symptoms RUDDY WYNN MD Mar 28, 2016 10:59
[2016-03-28] MEDS ORDERED: morphine 4 MG/ML VIAL IV PRN (12:00)
[2016-03-28] MEDS: morphine 2 MG INJ IV PRN (13:21)
[2016-03-28] MEDS ORDERED: HYDROCODONE/APAP (10/325) TAB PO PRN (18:00)
[2016-03-28] MEDS: RIVAROXABAN 10 MG TABLET PO SCH ×2 (18:34→19:25)
--- NOTE | 2016-03-28 18:52 | PN ---
DATE: 03/28/2016 SUBJECTIVE: Patient seen. She is working with knee machine and she is able to flex the knee to 70 degrees so it is better but still she is experiencing pain. The patient was noted to be dizzy this morning so the dose of morphine was reduced as discussed with nursing staff. Patient overall says juliocesar whittaker definitely showed some improvement today. In addition, she called Dr. Alas of orthopedic and [facility] an appointment for next Saturday. He is aware of patient's current situation. PHYSICAL EXAMINATION: VITAL SIGNS: Temperature 97.9, pulse 64, respirations 18, blood pressure 124/60, saturation 97%. GENERAL: The patient is in no acute distress. The patient is pale. CARDIOVASCULAR: S1, S2, regular rate and rhythm. LUNGS: Clear. ABDOMEN: Soft, nontender. EXTREMITIES: No clubbing, cyanosis, or edema. LABORATORY DATA: White count is 4.6, hemoglobin 9.9, hematocrit 30, that was yesterday. No other l abs today. MEDICATIONS: Reviewed and include: 1. Morphine 2 mg IV q.4h. p.r.n. 2. Baclofen 10 mg t.i.d. 3. Randolph 7.5/325 one tab q.4h. p.r.n. 4. Ferrous sulfate 325 daily. 5. Protonix 40 mg daily. 6. Lomotil p.r.n. 7. Nitroglycerin p.r.n. 8. Albuterol p.r.n. 9. Magnesium hydroxide daily. 10. Morphine p.r.n. orally. 11. Xarelto 10 mg with dinner. 12. Narcan p.r.n. 13. Tylenol p.r.n. 14. Ambien p.r.n. 15. Dulcolax p.r.n. 16. Zofran p.r.n. 17. Benadryl p.r.n. ASSESSMENT AND PLAN: This is a 65-year-old female with history of hypothyroidism lab pane ls, status post right knee arthroplasty, presents for rehabilitation. 1. Status post right hip arthroplasty. Continue physical therapy, pain medications. Advised her t o take oral Randolph and try to avoid IV morphine as possible. Also, in anticipation for discharge silvana nning. Patient to continue with physical therapy and occupational therapy. 2. Status post laparoscopic band decompression with dysphagia resolved status post decompression. 3. Anemia. Continue iron supplements. 4. Constipation. Continue stool softeners. 5. Continue pain control. Continue deep venous thrombosis prophylaxis with Xarelto. Continue Prot daniele for GI prophylaxis. We will follow. Dictated By: TRACE SELLERS/ROGELIO Conf#: [id number] DID#: [id number]
[2016-03-28] MEDS: ONDANSETRON 4 MG INJ IV PRN (18:58)
[2016-03-28 20:00] VITALS: BP 155/73; RESP 18
--- NOTE | 2016-03-28 20:32 | RADRPT ---
PROCEDURE: Ultrasound of the right lower extremity venous system. CLINICAL INDICATION: Right leg pain and swelling, deep venous thrombosis TECHNIQUE: Bennett scale with and without compression, color doppler, spectral doppler of the venous system of the right lower extremity was performed. Venous augmentation maneuvers were utilized. COMPARISON: No prior studies are available for comparison. FINDINGS: Common femoral vein: Patent. Superficial femoral vein: Patent. Popliteal vein: Patent. Calf veins: Patent. No soft tissue abnormalities are identified. IMPRESSION: No evidence of a deep vein thrombosis within the right lower extremity. RPTAT: AADD .Negro Araujo MD, MD Date Time Electronically viewed and signed by .Negro Araujo MD, on 03/28/2016 20:32 .B/
[2016-03-29] MEDS: PANTOPRAZOLE (EC) 40 MG TAB PO SCH (07:24)
[2016-03-29 08:00] VITALS: BP 117/61; PULSE 71; RESP 18
[2016-03-29] MEDS: MAGNESIUM HYDROXIDE 30ML CUP PO SCH (09:49)
[2016-03-29] MEDS: morphine 2 MG INJ IV PRN ×2 (10:32→15:13)
--- NOTE | 2016-03-29 12:45 | CONS ---
Date/Time of Note Date/Time of Note DATE: 03/29/16 TIME: 12:44 Consult Date/Type/Reason Admit Date/Time Mar 15, 2016 at 19:27 Type of Consultation: Gen Surgical Ordering Provider: TRACE BATES MD Subjective c/o some n/v yesterday Objective pulm- cta sba ambulation 200 feet Vital Signs Date Time Temp Pulse Resp B/P Pulse Ox O2 Delivery O2 Flow Rate FiO2 03/29/16 08:00 98.4 71 18 117/61 99 Room Air Intake and Output 03/28/16 03/28/16 03/29/16 15:00 23:00 07:00 Intake Total 720 ml 440 ml 280 ml Balance 720 ml 440 ml 280 ml Results/Medications Result Diagram: 03/27/16 0553 03/27/16 0553 Medications Current Medications Acetaminophen (Tylenol Tab) 650 mg Q4H PRN PO PAIN AND OR ELEVATED TEMP; Start 03/15/16 at 21:30 Bisacodyl (Dulcolax Supp) 10 mg HS PRN [place] CONSTIPATION; Start 03/15/16 at 21:30 Ondansetron HCl (Zofran Inj) 4 mg Q4H PRN IV NAUSEA AND/OR VOMITING Last administered on 03/28/16 18:58; Admin Dose 4 MG; Start 03/15/16 at 21:30 Diphenhydramine HCl (Benadryl) 12.5 mg Q6H PRN IV ITCHING; Start 03/15/16 at 21 :30 Naloxone HCl (Narcan) 0.4 mg PRN PRN IV SEDATION; Start 03/15/16 at 22:00 Morphine Sulfate (morphine) 10 mg Q4H PRN PO PAIN Last administered on 10:06; Admin Dose 10 MG; Start 03/16/16 at 20:30 Magnesium Hydroxide (Milk Of Mag) 30 ml DAILY PO Last administered on 03/29/16 09:49; Admin Dose 30 ML; Start 03/19/16 at 15:00 Nitroglycerin (Nitroglycerin (Sl Tab) 0.4 Mg) 1 tab Q5M PRN SL ANGINA; Start at 12:30 Diphenoxylate HCl/ Atropine (Lomotil) 1 tab Q6H PRN PO DIARRHEA Last administered on 03/23/16 09:23; Admin Dose 1 TAB; Start 03/22/16 at 15:00 Ferrous Sulfate (Ferrous Sulfate (Ec)) 325 mg DAILY PO Last administered on 03/28 09:00; Admin Dose 325 MG; Start 03/25/16 at 09:00 Acetaminophen/ Hydrocodone Bitart ([place] (7.5-325)) 2 tab Q4H PRN PO PAIN LEVEL 7-10 Last administered on 03/27/16 13:04; Admin Dose 2 TAB; Start 03/26/16 at 11:30 Baclofen (Lioresal) 10 mg TID PO Last administered on 03/28/16 13:08; Admin Dose 10 MG; Start 03/27/16 at 21:00 Morphine Sulfate (morphine) 2 mg Q4H PRN IV PAIN Last administered on 03/29/16 10:32; Admin Dose 2 MG; Start 03/28/16 at 13:30 Acetaminophen/ Hydrocodone Bitart ([place] (10/325)) 1 tab Q4H PRN PO PAIN; Start 03/28/16 at 18:00 Assessment/Plan Additional Assessment/Plan Rehab- status post right total knee arthroplasty. Continue to increase knee ROM as tolerated; excellent functional gains Acute pain syndrome- continue current medications History of gastric lap band- f/b surgery. Improved symptoms RUDDY WYNN MD Mar 29, 2016 12:45
[2016-03-29] MEDS: FERROUS SULFATE (EC) 325 MG TAB PO SCH (12:58)
[2016-03-29] MEDS: BACLOFEN 10 MG TAB PO SCH ×2 (12:59→13:09)
--- NOTE | 2016-03-29 13:10 | CONS ---
Date/Time of Note Date/Time of Note DATE: 03/29/16 TIME: 13:04 Consult Date/Type/Reason Admit Date/Time Mar 15, 2016 at 19:27 Type of Consultation: Gen Surgical Ordering Provider: TRACE BATES MD Subjective Patient had emesis on current medication regime Objective pulm- cta abd- soft PROM 60 degrees flexion Vital Signs Date Time Temp Pulse Resp B/P Pulse Ox O2 Delivery O2 Flow Rate FiO2 03/29/16 08:00 98.4 71 18 117/61 99 Room Air Intake and Output 03/28/16 03/28/16 03/29/16 15:00 23:00 07:00 Intake Total 720 ml 440 ml 280 ml Balance 720 ml 440 ml 280 ml Results/Medications Result Diagram: 03/27/16 0553 03/27/16 0553 Medications Current Medications Acetaminophen (Tylenol Tab) 650 mg Q4H PRN PO PAIN AND OR ELEVATED TEMP; Start 03/15/16 at 21:30 Bisacodyl (Dulcolax Supp) 10 mg HS PRN [place] CONSTIPATION; Start 03/15/16 at 21:30 Ondansetron HCl (Zofran Inj) 4 mg Q4H PRN IV NAUSEA AND/OR VOMITING Last administered on 03/28/16 18:58; Admin Dose 4 MG; Start 03/15/16 at 21:30 Diphenhydramine HCl (Benadryl) 12.5 mg Q6H PRN IV ITCHING; Start 03/15/16 at 21 :30 Naloxone HCl (Narcan) 0.4 mg PRN PRN IV SEDATION; Start 03/15/16 at 22:00 Morphine Sulfate (morphine) 10 mg Q4H PRN PO PAIN Last administered on 10:06; Admin Dose 10 MG; Start 03/16/16 at 20:30 Magnesium Hydroxide (Milk Of Mag) 30 ml DAILY PO Last administered on 03/29/16 09:49; Admin Dose 30 ML; Start 03/19/16 at 15:00 Nitroglycerin (Nitroglycerin (Sl Tab) 0.4 Mg) 1 tab Q5M PRN SL ANGINA; Start at 12:30 Diphenoxylate HCl/ Atropine (Lomotil) 1 tab Q6H PRN PO DIARRHEA Last administered on 03/23/16 09:23; Admin Dose 1 TAB; Start 03/22/16 at 15:00 Ferrous Sulfate (Ferrous Sulfate (Ec)) 325 mg DAILY PO Last administered on 03/29 12:58; Admin Dose 325 MG; Start 03/25/16 at 09:00 Acetaminophen/ Hydrocodone Bitart ([place] (7.5-325)) 2 tab Q4H PRN PO PAIN LEVEL 7-10 Last administered on 03/27/16 13:04; Admin Dose 2 TAB; Start 03/26/16 at 11:30 Baclofen (Lioresal) 10 mg TID PO Last administered on 03/29/16 12:59; Admin Dose 10 MG; Start 03/27/16 at 21:00 Morphine Sulfate (morphine) 2 mg Q4H PRN IV PAIN Last administered on 03/29/16 10:32; Admin Dose 2 MG; Start 03/28/16 at 13:30 Acetaminophen/ Hydrocodone Bitart ([place] (10/325)) 1 tab Q4H PRN PO PAIN; Start 03/28/16 at 18:00 Assessment/Plan Additional Assessment/Plan Rehab- Patient has made great functional gains, however the Knee ROM is at 60 degrees, and should be improved prior to dc. Will request extension for length of stay, to continue to improve knee ROM, while working on medical issues, specifically n/RUDDY Coyne MD Mar 29, 2016 13:10
--- NOTE | 2016-03-29 13:11 | PN ---
DATE: 03/29/2016 SUBJECTIVE: Case discussed with Dr. Amos and then with the patient. The patient is slightly impro ving. She had active movement at 55 degrees of the right knee and 60% passive movement. The patien t otherwise with no complaints, ambulating with a front-wheel walker. PHYSICAL EXAMINATION: VITAL SIGNS: Temperature 98.4, pulse 71, respirations 18, blood pressure 113/61, saturation 99% on room air. GENERAL: The patient is pale. CARDIOVASCULAR: S1 and S2, regular rate. LUNGS: Clear. ABDOMEN: Soft, nontender. EXTREMITIES: No clubbing, cyanosis, or edema. Right knee in bandage. IMAGING: I did order an ultrasound of the right lower extremity which showed no evidence of DVT of the right lower extremity. MEDICATIONS: Include the followin. [place] 10/325 q.4h. p.r.n. 2. Morphine 2 mg IV q.4h. p.r.n. 3. Baclofen 10 mg t.i.d. and she has been refusing that. 4. Ferrous sulfate 325 daily. 5. Protonix 40 mg daily. 6. Lomotil p.r.n. 7. Nitroglycerin p.r.n. 8. DuoNeb every 2 hours p.r.n. 9. Milk of magnesia daily. 10. Morphine p.o. p.r.n. 11. Xarelto 10 mg with dinner. 12. Tylenol p.r.n. 13. Ambien p.r.n. 14. Dulcolax p.r.n. 15. Zofran p.r.n. 16. Benadryl p.r.n. ASSESSMENT AND PLAN: This is a 65-year-old female with history of hypothyroidism, lap ban d, status post right knee arthroplasty, presents for rehabilitation. 1. Status post right hip arthroplasty. Continue physical therapy, occupational therapy, pain contr ol. Some improvement noted. Follow up with Dr. Alas as an outpatient. 2. Status post laparoscopic band decompression. She initially presented with dysphagia, resolved. 3. Anemia. Continue iron supplements. 4. Constipation. Continue stool softeners. 5. Continue Xarelto for deep venous thrombosis prophylaxis. 6. Monitor labs periodically. Discharge planning is currently being discussed regarding date and t anton. We will follow. Dictated By: TRACE SELLERS/ROGELIO SCHMIDT: 03/29/2016 12:09:27 Conf#: [id number] DID#: [id number]
[2016-03-29] MEDS: RIVAROXABAN 10 MG TABLET PO SCH (18:44)
[2016-03-29 20:00] VITALS: BP_SYST 132; BP_SYST 144; BP_DIAS 70; PULSE 66; RESP 18
[2016-03-30] MEDS: BACLOFEN 10 MG TAB PO PRN (07:12)
[2016-03-30] MEDS: PANTOPRAZOLE (EC) 40 MG TAB PO SCH (07:12)
[2016-03-30 08:00] VITALS: BP 128/62; RESP 18
[2016-03-30] MEDS: morphine 2 MG INJ IV PRN (08:31)
[2016-03-30] MEDS: FERROUS SULFATE (EC) 325 MG TAB PO SCH (08:31)
[2016-03-30] MEDS: MAGNESIUM HYDROXIDE 30ML CUP PO SCH (08:35)
--- NOTE | 2016-03-30 12:10 | CONS ---
Date/Time of Note Date/Time of Note DATE: 03/30/16 TIME: 11:26 Consult Date/Type/Reason Admit Date/Time Mar 15, 2016 at 19:27 Type of Consultation: Gen Surgical Ordering Provider: TRACE BATES MD Subjective Rehab- status post right total knee arthroplasty. Knee ROM improved. SW working on dc planning Acute pain syndrome- continue current medications History of gastric lap band- f/b surgery. Improved symptoms Objective Vital Signs Date Time Temp Pulse Resp B/P Pulse Ox O2 Delivery O2 Flow Rate FiO2 03/30/16 08:00 98.9 18 128/62 99 Room Air 03/29/16 20:00 66 Intake and Output 03/29/16 03/29/16 03/30/16 15:00 23:00 07:00 Intake Total 800 ml 350 ml Output Total 750 ml Balance 800 ml -400 ml Results/Medications Result Diagram: 03/27/16 0553 03/27/16 0553 Medications Current Medications Acetaminophen (Tylenol Tab) 650 mg Q4H PRN PO PAIN AND OR ELEVATED TEMP; Start 03/15/16 at 21:30 Bisacodyl (Dulcolax Supp) 10 mg HS PRN [place] CONSTIPATION; Start 03/15/16 at 21:30 Ondansetron HCl (Zofran Inj) 4 mg Q4H PRN IV NAUSEA AND/OR VOMITING Last administered on 03/28/16 18:58; Admin Dose 4 MG; Start 03/15/16 at 21:30 Diphenhydramine HCl (Benadryl) 12.5 mg Q6H PRN IV ITCHING; Start 03/15/16 at 21 :30 Naloxone HCl (Narcan) 0.4 mg PRN PRN IV SEDATION; Start 03/15/16 at 22:00 Morphine Sulfate (morphine) 10 mg Q4H PRN PO PAIN Last administered on 10:06; Admin Dose 10 MG; Start 03/16/16 at 20:30 Magnesium Hydroxide (Milk Of Mag) 30 ml DAILY PO Last administered on 03/29/16 09:49; Admin Dose 30 ML; Start 03/19/16 at 15:00 Nitroglycerin (Nitroglycerin (Sl Tab) 0.4 Mg) 1 tab Q5M PRN SL ANGINA; Start at 12:30 Diphenoxylate HCl/ Atropine (Lomotil) 1 tab Q6H PRN PO DIARRHEA Last administered on 03/23/16 09:23; Admin Dose 1 TAB; Start 03/22/16 at 15:00 Ferrous Sulfate (Ferrous Sulfate (Ec)) 325 mg DAILY PO Last administered on 08:31; Admin Dose 325 MG; Start 03/25/16 at 09:00 Acetaminophen/ Hydrocodone Bitart ([place] (7.5-325)) 2 tab Q4H PRN PO PAIN LEVEL 7-10 Last administered on 03/27/16 13:04; Admin Dose 2 TAB; Start 03/26/16 at 11:30 Morphine Sulfate (morphine) 2 mg Q4H PRN IV PAIN LEVEL 1-5 Last administered on 03/30/16 08:31; Admin Dose 2 MG; Start 03/28/16 at 13:30 Acetaminophen/ Hydrocodone Bitart ([place] (10/325)) 1 tab Q4H PRN PO PAIN; Start 03/28/16 at 18:00 Morphine Sulfate (morphine) 4 mg Q4H PRN IV SEVERE PAIN LEVEL 7-10; Start at 14:00 Baclofen (Lioresal) 10 mg DAILY PRN PO PAIN Last administered on 03/30/16 07: 12; Admin Dose 10 MG; Start 03/30/16 at 06:30 Assessment/Plan Additional Assessment/Plan Rehab- status post right total knee arthroplasty. ROM improving gradually. Working toward mn Saturday with home CPM and outpatient PT Acute pain syndrome- continue current medications History of gastric lap band- f/b surgery. Improved symptoms RUDDY WYNN MD Mar 30, 2016 11:38
[2016-03-30] MEDS: HYDROCODONE/APAP (7.5/325) TAB PO PRN (12:56)
[2016-03-30] MEDS: morphine 4 MG/ML VIAL IV PRN (13:21)
--- NOTE | 2016-03-30 15:14 | PN ---
DATE: 03/30/2016 SUBJECTIVE: The patient was seen. Doing better. She is able to bend her right knee 75 degrees, so definitely much improvement within the last 2 days. She states that the pain medications did help significantly. PHYSICAL EXAMINATION: VITAL SIGNS: T-max 98.9, pulse 66, respirations 18, blood pressure 128/62, saturation 99% on room a ir. GENERAL: In no acute distress. HEENT: Head normocephalic, atraumatic. Pale. CARDIOVASCULAR: S1 and S2, regular rate. LUNGS: Clear. ABDOMEN: Soft, nontender. EXTREMITIES: No clubbing, cyanosis, or edema. LABORATORY: White count 4.6, hemoglobin 9.9. That was on the 7th. No new labs. Stool for C. diff on 03/22/2016 was negative. MEDICATIONS: Include the followin. Baclofen 10 mg daily. 2. Morphine 4 mg IV q.4 p.r.n. 3. [place] 10/325 q.4 p.r.n. 4. Ferrous sulfate 325 daily. 5. Protonix 40 mg daily. 6. Lomotil p.r.n. 7. Nitroglycerin p.r.n. 8. DuoNebs p.r.n. 9. Milk of Magnesia daily. 10. Morphine p.r.n. 11. Xarelto 10 mg with dinner. 12. Narcan p.r.n. 13. p.r.n. 14. Ambien p.r.n. 15. Dulcolax p.r.n. 16. Zofran p.r.n. 17. Benadryl p.r.n. ASSESSMENT AND PLAN: This is a very unfortunate 65-year-old female with a history of hypo thyroidism, lap band, status post right knee arthroplasty, who presented to rehabilitation. 1. Status post right hip arthropathy. Continue physical therapy, occupational therapy, knee therap y. Follow up outpatient with the orthopedic doctor. Continue pain medications. 2. Status post laparoscopic band decompression, where initially she presented with dysphagia, which resolved. 3. Anemia. On iron supplements. 4. Constipation. Continue stool softeners. 5. Continue Xarelto for deep venous thrombosis prophylaxis. 6. Monitor labs periodically. Monitor any change in condition. Currently continues to improve. Anticipation for discharge is likely on Saturday, as noted by the [facility] abilitation team. Dictated By: TRACE SELLERS/ROGELIO Conf#: [id number] DID#: [id number]
[2016-03-30] MEDS: RIVAROXABAN 10 MG TABLET PO SCH (17:34)
[2016-03-30] MEDS: ONDANSETRON 4 MG INJ IV PRN (17:36)
[2016-03-30 20:30] VITALS: BP 135/63; RESP 18
[2016-03-31] MEDS: BACLOFEN 10 MG TAB PO PRN (06:59)
[2016-03-31] MEDS: PANTOPRAZOLE (EC) 40 MG TAB PO SCH (06:59)
[2016-03-31 07:40] VITALS: BP 117/55; PULSE 64; RESP 18
[2016-03-31] MEDS: morphine 4 MG/ML VIAL IV PRN (08:05)
[2016-03-31] MEDS: FERROUS SULFATE (EC) 325 MG TAB PO SCH (08:06)
[2016-03-31] MEDS: MAGNESIUM HYDROXIDE 30ML CUP PO SCH (08:06)
--- NOTE | 2016-03-31 11:58 | PN ---
DATE: 03/31/2016 SUBJECTIVE: The patient seen sitting in a chair, overall comfortable, still has difficulty flexing beyond about 65 degrees. Patient overall currently comfortable, good appetite. Discharge plan for tomorrow arranged. This patient overall improved in the past few days and patient to follow with Dr Ney Alas on Saturday regarding pulmonary condition. PHYSICAL EXAMINATION: VITAL SIGNS: Temperature 98.3, pulse 64, respiration 18, blood pressure 117/55, saturation 98% on r oom air. GENERAL: The patient is in no acute distress. HEENT: Normocephalic, atraumatic, pale. CARDIOVASCULAR: S1 and S2, regular rate. LUNGS: Clear. ABDOMEN: Soft, nontender. EXTREMITIES: No clubbing, cyanosis, or edema. Right knee, there are Steri-Strips at the knee sutur e site. Again, limited mobility up to about 65 degrees. MEDICATIONS: 1. Baclofen 10 mg daily p.r.n. 2. Morphine p.r.n. 3. [place] p.r.n. 4. Ferrous sulfate 325 daily. 5. Protonix 40 mg daily. 6. Lomotil p.r.n. 7. Nitroglycerin p.r.n. 8. DuoNeb q.2h. p.r.n. 9. Milk of magnesia daily. 11. Xarelto 20 mg daily. 12. Narcan p.r.n. 13. Tylenol p.r.n. 15. Ambien p.r.n. 16. Dulcolax p.r.n. 17. Zofran p.r.n. 18. Benadryl p.r.n. ASSESSMENT AND PLAN: This is a 65-year-old female with history of hypothyroidism, lap ban d status post right knee arthroplasty who presents for rehabilitation. 1. Status post right knee arthroplasty. Continue physical therapy. The patient was taught how to use the right knee machine. Continue pain medications. Patient to follow up with physical therapy as an outpatient basis and with Dr. Alas on Saturday. 2. Constipation. Continue stool softeners. 3. Anemia, on iron supplement. 4. Status post laparoscopic band decompression. Initially she was presented with dysphagia, which resolved. 5. Continue Xarelto For deep venous thrombosis prophylaxis, the duration per orthopedics. The colleen ent also needs to follow up with her doctor. 6. Most recent labs were reviewed, no significant abnormalities besides stable anemia. Case discus sed with nursing staff and rehabilitation physician. Plan for discharge in the a.m. DISPOSITION: I have answered patient's questions. We will follow. Dictated By: TRACE SELLERS/ROGELIO Conf#: [id number] DID#: [id number]
--- NOTE | 2016-03-31 13:37 | PN ---
Date/Time of Note Date/Time of Note DATE: 03/31/16 TIME: 13:34 Assessment/Plan VTE Prophylaxis VTE Prophylaxis Intervention: other (xarelto) Lines/Catheters IV Catheter Type (from Nrsg): Saline Lock Urinary Cath still in place: No Assessment/Plan Assessment/Plan 1. Status post Right total knee arthroplasty with history of right knee OA and prior work related injury. With impaired mobility/gait/ADLs. Continue PT/OT. Acute post op pain controlled. 2. History of lap band surgery. 3. Anemia. Continue to monitor hemoglobin/hematocrit. 4. Discharge planning underway to home tomorrow with home health. Subjective 24 Hr Interval Summary Free Text/Dictation Rehab progress note Subjective: No acute complaints. ROS: Denies chest pain, no shortness of breath, no chills, no abdominal pain, no nausea or vomiting. Exam/Review of Systems Vital Signs Vitals Vital Signs Date Time Temp Pulse Resp B/P Pulse Ox O2 Delivery O2 Flow Rate FiO2 03/31/16 07:40 98.3 64 18 117/55 98 Room Air Intake and Output 03/30/16 03/30/16 03/31/16 15:00 23:00 07:00 Intake Total 720 ml 300 ml Balance 720 ml 300 ml Exam General: Awake, alert, no acute distress CV: Regular rate, s1s2 audible Lungs clear to auscultation, no wheezing Abdomen soft, nontender Extremities: Right knee surgical site with steristrips in place clean and dry, no active drainage Neuro: No new focal changes. Results Result Diagram: 03/27/16 0553 03/27/16 0553 Medications Medications Current Medications Acetaminophen (Tylenol Tab) 650 mg Q4H PRN PO PAIN AND OR ELEVATED TEMP; Start 03/15/16 at 21:30 Bisacodyl (Dulcolax Supp) 10 mg HS PRN [place] CONSTIPATION; Start 03/15/16 at 21:30 Ondansetron HCl (Zofran Inj) 4 mg Q4H PRN IV NAUSEA AND/OR VOMITING Last administered on 03/30/16t 17:36; Admin Dose 4 MG; Start 03/15/16 at 21:30 Diphenhydramine HCl (Benadryl) 12.5 mg Q6H PRN IV ITCHING; Start 03/15/16 at 21 :30 Naloxone HCl (Narcan) 0.4 mg PRN PRN IV SEDATION; Start 03/15/16 at 22:00 Morphine Sulfate (morphine) 10 mg Q4H PRN PO PAIN Last administered on 10:06; Admin Dose 10 MG; Start 03/16/16 at 20:30 Magnesium Hydroxide (Milk Of Mag) 30 ml DAILY PO Last administered on 08:06; Admin Dose 30 ML; Start 03/19/16 at 15:00 Nitroglycerin (Nitroglycerin (Sl Tab) 0.4 Mg) 1 tab Q5M PRN SL ANGINA; Start at 12:30 Diphenoxylate HCl/ Atropine (Lomotil) 1 tab Q6H PRN PO DIARRHEA Last administered on 03/23/16 09:23; Admin Dose 1 TAB; Start 03/22/16 at 15:00 Ferrous Sulfate (Ferrous Sulfate (Ec)) 325 mg DAILY PO Last administered on 08:06; Admin Dose 325 MG; Start 03/25/16 at 09:00 Acetaminophen/ Hydrocodone Bitart ([place] (7.5-325)) 2 tab Q4H PRN PO PAIN LEVEL 7-10 Last administered on 03/30/16 12:56; Admin Dose 2 TAB; Start at 11:30 Morphine Sulfate (morphine) 2 mg Q4H PRN IV PAIN LEVEL 1-5 Last administered on 03/30/16 08:31; Admin Dose 2 MG; Start 03/28/16 at 13:30 Acetaminophen/ Hydrocodone Bitart ([place] (10/325)) 1 tab Q4H PRN PO PAIN; Start 03/28/16 at 18:00 Morphine Sulfate (morphine) 4 mg Q4H PRN IV SEVERE PAIN LEVEL 7-10 Last administered on 03/31/16 08:05; Admin Dose 4 MG; Start 03/29/16 at 14:00 Baclofen (Lioresal) 10 mg DAILY PRN PO PAIN Last administered on 03/31/16 06: 59; Admin Dose 10 MG; Start 03/30/16 at 06:30 CELSA WARREN Mar 31, 2016 13:37
[2016-03-31] MEDS: RIVAROXABAN 10 MG TABLET PO SCH (18:00)
[2016-03-31 19:45] VITALS: BP 133/63; RESP 18
[2016-04-01] MEDS: DIPHENOXYLATE/ATROPINE TAB PO PRN (06:48)
[2016-04-01] MEDS: PANTOPRAZOLE (EC) 40 MG TAB PO SCH (06:48)
[2016-04-01] MEDS: BACLOFEN 10 MG TAB PO PRN (06:48)
[2016-04-01 07:30] VITALS: BP 129/63; RESP 18
[2016-04-01] MEDS: FERROUS SULFATE (EC) 325 MG TAB PO SCH (08:15)
[2016-04-01] MEDS: MAGNESIUM HYDROXIDE 30ML CUP PO SCH (08:17)
== END 2016-04-01 08:50 | disposition home or self-care (01) | DRG 982 ==
LOC: VRC 19:27
PROVIDERS: ADMIT Physical Medicine & Rehabilitation; ATTEND Internal Medicine
PROC: 0DW63CZ Revision of Extraluminal Device in Stomach, Percutaneous Approach (ICD-10-PCS; principal; 2016-03-15)
DX: Z47.1 Aftercare following joint replacement surgery (principal); E46 Unspecified protein-calorie malnutrition; R13.10 Dysphagia, unspecified; N39.0 Urinary tract infection, site not specified; K22.8 Other specified diseases of esophagus; K95.09 Other complications of gastric band procedure; Z68.1 Body mass index [BMI] 19.9 or less, adult; D64.9 Anemia, unspecified; E87.6 Hypokalemia; R11.2 Nausea with vomiting, unspecified; K59.00 Constipation, unspecified; G89.18 Other acute postprocedural pain; Y84.8 Other medical procedures as the cause of abnormal reaction of the patient, or of later complication, without mention of misadventure at the time of the procedure; Y92.239 Unspecified place in hospital as the place of occurrence of the external cause; R07.9 Chest pain, unspecified; R19.7 Diarrhea, unspecified; Z98.84 Bariatric surgery status; Z96.651 Presence of right artificial knee joint; Z79.02 Long term (current) use of antithrombotics/antiplatelets
CPT/HCPCS: 71010; 73560; 74240; 80048; 80053; 81001; 81003; 82550; 82553; 82607; 82962; 83690; 83735; 84100; 84443; 84484; 85025; 87075; 87081; 87086; 92526; 92610; 93005; 93971; 95852; 97110; 97112; 97116; 97150; 97163; 97166; 97530; 97535; C9113; J0696; J2270; J2405; J3480; J7042